=== PATIENT | male | born 1930 | race Caucasian/White ===

== ENCOUNTER 2020-05-19 01:40 | Emergency (ER) | payer MEDICARE, BC ==
[2020-05-19] MEDS ORDERED: HYDROmorphone 0.5 MG/0.5 ML Syringe IVPUSH ONE ×4 (02:01→04:31)
[2020-05-19] MEDS ORDERED: Ondansetron 4 MG/2 ML SDV IVPUSH ONE (02:01)
--- NOTE | 2020-05-19 02:05 | EDM.PDOC ---
ED HPI GENERAL MEDICAL PROBLEM - General Chief Complaint: Chest Pain Stated Complaint: CHEST PAIN Time Seen by Provider: 05/19/20 01:44 Source of Information: Reports: Patient, Family (Daughter) History Limitations: Reports: Other (Patient not good with dates) - History of Present Illness INITIAL COMMENTS - FREE TEXT/NARRATIVE: Mr. Juarez is a pleasant 89-year-old gentleman who now presents the ED stating that he developed chest pain around 18:30 to 19:00 last night. While he calls his pain "chest pain", he is actually indicating the left upper quadrant of his abdomen, and states that it wraps around to his upper left back. When I pointed out that he is indicating his abdomen and not his chest, he clarified that he is not actually experiencing any pain in his chest at all, only left upper abdominal pain and left upper back pain. He states that the pain developed gradually. He is only able to describe the character of the pain as "continuous pain" and confirms that it is constant. He has not identified any modifiers. He states that he felt diaphoretic initially, although less so now. No associated nausea, dyspnea, or sense of impending doom. He states that he had similar pain in 2018, when he was seen in this ED, however, his daughter clarified that at that time his pain was felt in his epigastrium, not his left upper quadrant. Review of that medical record confirms that presentation. The patient states that he took a single sublingual tablet of the medicine prescribed when he was last seen in this ED, around 20:00 to 21:00. The medical record indicates that it would have been Levsin 0.125 mg SL. He states that it did not help his pain at all. The patient then stated that this pain may be similar to pain that he experienced when he was 32 years old, at which time he was diagnosed with pancreatitis. Here in the ED, the patient's initial BP is found to be elevated at 185/81, with bradycardia 55 bpm and tachypnea of 23 rpm. He is afebrile, saturating 100% on room air. Prior to 18:30 last night, the patient denies having a recent fever, chills, sore throat, ear pain, nasal or sinus congestion, cough, dyspnea, chest pain, palpitations, nausea, vomiting, constipation, diarrhea, abdominal pain, urinary symptoms, recent weight gain or weight loss, recent bloody bowel movements or black bowel movements, recent joint aches, headaches, or rashes. Patient's PCP is Dr. Stephen Rosales. He states that he already received an influenza vaccine this season. Epigastric Pain Score (Numeric/FACES): 10 - Related Data Allergies Allergy/AdvReac Type Severity Reaction Status Date / Time lisinopril Allergy Liver Verified 05/19/20 01:48 Problems Sulfa (Sulfonamide Allergy Hives Verified 05/19/20 01:48 Antibiotics) Home Meds: Home Meds Aspirin 81 mg PO DAILY 03/12/18 [History] Doxazosin [Doxazosin Mesylate] 8 mg PO DAILY 03/12/18 [History] Dulaglutide [Trulicity] 1.5 mg SQ TH 03/12/18 [History] Gabapentin [Neurontin] 300 mg PO BID 03/12/18 [History] Glimepiride 4 mg PO BIDMEALS 03/12/18 [History] Hyoscyamine Sulfate [Levsin-Sl] 0.125 mg SL ASDIRECTED #6 tab.subl 03/12/18 [Rx] Naproxen Sodium [Aleve] 220 mg PO BID PRN 03/12/18 [History] Past Medical History Cardiovascular History: Reports: Hypertension Gastrointestinal History: Reports: Pancreatitis (when 32 yrs old) Genitourinary History: Reports: BPH, Diabetic Nephropathy Musculoskeletal History: Reports: Fracture (pelvis, as a child), Osteoarthritis Endocrine/Metabolic History: Reports: Diabetes, Type II - Past Surgical History HEENT Surgical History: Reports: Cataract Surgery (left only), Other (See Below) (Bilateral blepharoplasty) GI Surgical History: Reports: Appendectomy, Hernia, Inguinal (bilateral) Neurological Surgical History: Reports: Lumbar Spine (laminectomy) Social & Family History - Tobacco Use Tobacco Use Status *Q: Never Tobacco User - Caffeine Use Caffeine Use: Reports: None - Alcohol Use Alcohol Use History: Yes Alcohol Use Frequency: Rarely - Recreational Drug Use Recreational Drug Use: No - Living Situation & Occupation Living situation: Reports: , with Spouse, with Family (Daughter) Occupation: Retired ED ROS GENERAL - Review of Systems Review Of Systems: Comprehensive ROS is negative, except as noted in HPI. Musculoskeletal: Reports: Back Pain ED EXAM, GENERAL - Physical Exam Exam: See Below Exam Limited By: No Limitations General Appearance: Alert, WD/WN, Mild Distress (appears uncomfortable) Eye Exam: Bilateral Eye: EOMI, Normal Inspection Ears: Normal External Exam, Hearing Grossly Normal Nose: Normal Inspection Throat/Mouth: Normal Inspection, Normal Lips, Normal Voice, No Airway Compromise Head: Atraumatic, Normocephalic Neck: Normal Inspection, Full Range of Motion Respiratory/Chest: No Respiratory Distress, Lungs Clear, Normal Breath Sounds, No Accessory Muscle Use Cardiovascular: Normal Peripheral Pulses, Regular Rate, Rhythm, No Gallop, No JVD, No Murmur, No Rub Peripheral Pulses: 3+: Radial (L), Radial (R) GI/Abdominal: Normal Bowel Sounds, Soft, No Organomegaly, No Distention, No Abnormal Bruit, No Mass, Tender (Left lower quadrant only. Nontender elsewhere, including the left upper quadrant.) Back Exam: Normal Inspection, Full Range of Motion, Other (Reproducible tenderness to palpation of the left parascapular muscles). No: CVA Tenderness (L), CVA Tenderness (R) Extremities: Normal Inspection, Normal Range of Motion, Normal Capillary Refill, Other (Trace to 1+ pitting pretibial edema bilaterally) Neurological: Alert, Oriented, Normal Cognition, No Motor/Sensory Deficits Psychiatric: Normal Affect Skin Exam: Warm, Dry, Intact, Normal Color, No Rash #1 Interpretation EKG Date: 05/19/20 Time: 01:54 Rhythm: NSR Rate (Beats/Min): 68 Atkins: LAD-Left Atkins Deviation P-Wave: Enlarged (LAE) QRS: LBBB (Incomplete. Late transition.) ST-T: Normal QT: Normal Comparison: No Change (03/12/2018) Course - Vital Signs Last Recorded V/S: Last Vital Signs Temp 36.6 C 05/19/20 01:44 Pulse 65 05/19/20 01:44 Resp 16 05/19/20 01:44 BP 214/92 H 05/19/20 01:44 Pulse Ox 100 05/19/20 01:44 - Orders/Labs/Meds Orders: Active Orders 24 hr Category Date Time Status EKG Documentation Completion [RC] STAT Care 05/19/20 01:47 Active Abdomen Pelvis w Cont [CT] Stat Exams 05/19/20 02:01 Taken Ang Chest [CT] Stat Exams 05/19/20 02:35 Taken Chest 1V Frontal [CR] Stat Exams 05/19/20 01:47 Taken HYDROmorphone [Dilaudid] Med 05/19/20 04:31 Once 0.5 mg IVPUSH ONETIME ONE Sodium Chloride 0.9% [Normal Saline] 1,000 ml Med 05/19/20 02:15 Active IV ASDIRECTED Medication Orders Sodium Chloride (Normal Saline) 1,000 mls @ 150 mls/hr IV ASDIRECTED TRE Last Admin: 05/19/20 02:12 Dose: 150 mls/hr Documented by: DARLENE Labs: Laboratory Tests 05/19/20 05/19/20 05/19/20 Range/Units 01:54 01:54 01:54 WBC 6.99 (4.23-9.07) K/mm3 RBC 4.79 (4.63-6.08) M/mm3 Hgb 14.7 (13.7-17.5) gm/dl Hct 45.5 (40.1-51.0) % MCV 95.0 H (79.0-92.2) fl MCH 30.7 (25.7-32.2) pg MCHC 32.3 (32.2-35.5) g/dl RDW Std Deviation 44.5 H (35.1-43.9) fL Plt Count 124 L (163-337) K/mm3 MPV 10.5 (9.4-12.3) fl Neutrophils % (Manual) 64 H (40-60) % Band Neutrophils % 6 (0-10) % Lymphocytes % (Manual) 23 (20-40) % Atypical Lymphs % 0 % Monocytes % (Manual) 5 (2-10) % Eosinophils % (Manual) 2 (0.8-7.0) % Basophils % (Manual) 0 L (0.2-1.2) Platelet Estimate Decreased Plt Morphology Comment Normal RBC Morph Comment Normal PT 11.1 (9.7-12.0) SECONDS INR 1.04 APTT 25.4 (21.7-31.4) SECONDS D-Dimer, Quantitative 1.16 H (0.19-0.50) mg/L Sodium 141 (136-145) mEq/L Potassium 4.1 (3.5-5.1) mEq/L Chloride 104 (98-107) mEq/L Carbon Dioxide 23 (21-32) mEq/L Anion Gap 18.1 H (5-15) BUN 30 H (7-18) mg/dL Creatinine 2.2 H (0.7-1.3) mg/dL Est Cr Clr Drug Dosing 24.24 mL/min Estimated GFR (MDRD) 28 (>60) mL/min BUN/Creatinine Ratio 13.6 L (14-18) Glucose 285 H (83-115) mg/dL Calcium 9.8 (8.5-10.1) mg/dL Magnesium (1.8-2.4) mg/dl Total Bilirubin 0.3 (0.2-1.0) mg/dL AST 21 (15-37) U/L ALT 38 (16-63) U/L Alkaline Phosphatase 121 H (46-116) U/L Troponin I < 0.017 (0.00-0.056) ng/mL NT-Pro-B Natriuret Pep (0-450) pg/mL Total Protein 6.9 (6.4-8.2) g/dl Albumin 3.8 (3.4-5.0) g/dl Globulin 3.1 gm/dL Albumin/Globulin Ratio 1.2 (1-2) Lipase (73-393) U/L Urine Color (Yellow) Urine Appearance (Clear) Urine pH (5.0-8.0) Ur Specific [place] (1.005-1.030) Urine Protein (Negative) Urine Glucose (UA) (Negative) Urine Ketones (Negative) Urine Occult Blood (Negative) Urine Nitrite (Negative) Urine Bilirubin (Negative) Urine Urobilinogen (0.2-1.0) Ur Leukocyte Esterase (Negative) Urine RBC (0-5) /hpf Urine WBC (0-5) /hpf Ur Squamous Epith Cells (0-5) /hpf Urine Bacteria (FEW) /hpf Urine Mucus (FEW) /hpf 05/19/20 05/19/20 05/19/20 Range/Units 01:54 01:54 01:54 WBC (4.23-9.07) K/mm3 RBC (4.63-6.08) M/mm3 Hgb (13.7-17.5) gm/dl Hct (40.1-51.0) % MCV (79.0-92.2) fl MCH (25.7-32.2) pg MCHC (32.2-35.5) g/dl RDW Std Deviation (35.1-43.9) fL Plt Count (163-337) K/mm3 MPV (9.4-12.3) fl Neutrophils % (Manual) (40-60) % Band Neutrophils % (0-10) % Lymphocytes % (Manual) (20-40) % Atypical Lymphs % % Monocytes % (Manual) (2-10) % Eosinophils % (Manual) (0.8-7.0) % Basophils % (Manual) (0.2-1.2) Platelet Estimate Plt Morphology Comment RBC Morph Comment PT (9.7-12.0) SECONDS INR APTT (21.7-31.4) SECONDS D-Dimer, Quantitative (0.19-0.50) mg/L Sodium (136-145) mEq/L Potassium (3.5-5.1) mEq/L Chloride (98-107) mEq/L Carbon Dioxide (21-32) mEq/L Anion Gap (5-15) BUN (7-18) mg/dL Creatinine (0.7-1.3) mg/dL Est Cr Clr Drug Dosing mL/min Estimated GFR (MDRD) (>60) mL/min BUN/Creatinine Ratio (14-18) Glucose (83-115) mg/dL Calcium (8.5-10.1) mg/dL Magnesium 1.7 L (1.8-2.4) mg/dl Total Bilirubin (0.2-1.0) mg/dL AST (15-37) U/L ALT (16-63) U/L Alkaline Phosphatase (46-116) U/L Troponin I (0.00-0.056) ng/mL NT-Pro-B Natriuret Pep 172 (0-450) pg/mL Total Protein (6.4-8.2) g/dl Albumin (3.4-5.0) g/dl Globulin gm/dL Albumin/Globulin Ratio (1-2) Lipase 214 (73-393) U/L Urine Color (Yellow) Urine Appearance (Clear) Urine pH (5.0-8.0) Ur Specific [place] (1.005-1.030) Urine Protein (Negative) Urine Glucose (UA) (Negative) Urine Ketones (Negative) Urine Occult Blood (Negative) Urine Nitrite (Negative) Urine Bilirubin (Negative) Urine Urobilinogen (0.2-1.0) Ur Leukocyte Esterase (Negative) Urine RBC (0-5) /hpf Urine WBC (0-5) /hpf Ur Squamous Epith Cells (0-5) /hpf Urine Bacteria (FEW) /hpf Urine Mucus (FEW) /hpf 05/19/20 Range/Units 02:49 WBC (4.23-9.07) K/mm3 RBC (4.63-6.08) M/mm3 Hgb (13.7-17.5) gm/dl Hct (40.1-51.0) % MCV (79.0-92.2) fl MCH (25.7-32.2) pg MCHC (32.2-35.5) g/dl RDW Std Deviation (35.1-43.9) fL Plt Count (163-337) K/mm3 MPV (9.4-12.3) fl Neutrophils % (Manual) (40-60) % Band Neutrophils % (0-10) % Lymphocytes % (Manual) (20-40) % Atypical Lymphs % % Monocytes % (Manual) (2-10) % Eosinophils % (Manual) (0.8-7.0) % Basophils % (Manual) (0.2-1.2) Platelet Estimate Plt Morphology Comment RBC Morph Comment PT (9.7-12.0) SECONDS INR APTT (21.7-31.4) SECONDS D-Dimer, Quantitative (0.19-0.50) mg/L Sodium (136-145) mEq/L Potassium (3.5-5.1) mEq/L Chloride (98-107) mEq/L Carbon Dioxide (21-32) mEq/L Anion Gap (5-15) BUN (7-18) mg/dL Creatinine (0.7-1.3) mg/dL Est Cr Clr Drug Dosing mL/min Estimated GFR (MDRD) (>60) mL/min BUN/Creatinine Ratio (14-18) Glucose (83-115) mg/dL Calcium (8.5-10.1) mg/dL Magnesium (1.8-2.4) mg/dl Total Bilirubin (0.2-1.0) mg/dL AST (15-37) U/L ALT (16-63) U/L Alkaline Phosphatase (46-116) U/L Troponin I (0.00-0.056) ng/mL NT-Pro-B Natriuret Pep (0-450) pg/mL Total Protein (6.4-8.2) g/dl Albumin (3.4-5.0) g/dl Globulin gm/dL Albumin/Globulin Ratio (1-2) Lipase (73-393) U/L Urine Color Yellow (Yellow) Urine Appearance Clear (Clear) Urine pH 7.0 (5.0-8.0) Ur Specific [place] 1.025 (1.005-1.030) Urine Protein 2+ H (Negative) Urine Glucose (UA) 2+ H (Negative) Urine Ketones 1+ H (Negative) Urine Occult Blood Trace-intact H (Negative) Urine Nitrite Negative (Negative) Urine Bilirubin Negative (Negative) Urine Urobilinogen 0.2 (0.2-1.0) Ur Leukocyte Esterase Negative (Negative) Urine RBC 0-5 (0-5) /hpf Urine WBC Not seen (0-5) /hpf Ur Squamous Epith Cells 0-5 (0-5) /hpf Urine Bacteria Few (FEW) /hpf Urine Mucus Few (FEW) /hpf Meds: Medications Generic Name Dose Route Start Last Admin Trade Name Freq PRN Reason Stop Dose Admin Sodium Chloride 1,000 mls @ 150 mls/hr 05/19/20 02:15 05/19/20 02:12 Normal Saline IV 150 mls/hr ASDIRECTED TRE Administration Discontinued Medications Generic Name Dose Route Start Last Admin Trade Name Freq PRN Reason Stop Dose Admin Hydromorphone HCl 0.5 mg 05/19/20 02:01 05/19/20 02:11 Dilaudid IVPUSH 05/19/20 02:02 0.5 mg ONETIME ONE Administration Hydromorphone HCl 0.5 mg 05/19/20 02:32 05/19/20 02:51 Dilaudid IVPUSH 05/19/20 02:33 0.5 mg ONETIME ONE Administration Hydromorphone HCl 0.5 mg 05/19/20 03:45 05/19/20 03:58 Dilaudid IVPUSH 05/19/20 03:46 0.5 mg ONETIME ONE Administration Insulin Human Regular 4 unit 05/19/20 02:37 05/19/20 02:52 Humulin R IV 05/19/20 02:38 4 unit ONETIME STA Administration Ondansetron HCl 4 mg 05/19/20 02:01 05/19/20 02:12 Zofran IVPUSH 05/19/20 02:02 4 mg ONETIME ONE Administration - Re-Assessments/Exams Free Text/Narrative Re-Assessment/Exam: 05/19/20 02:04 As above, the patient presented with what he was calling chest pain, but when asked to show us where his pain was located, he indicated his left upper quadrant, and when it was explained that he was indicating his abdomen and on his chest, he denied having any pain felt in his chest. On examination, he has tenderness not in his left upper quadrant, but his left lower quadrant. The pain that he feels in his left scapular area is reproducible with palpation of his parascapular musculature. The remainder of his physical exam is grossly unremarkable. An ECG obtained at triage demonstrates an incomplete left bundle branch block, but no obvious ischemic changes, it is remarkably similar to a johan or ECG dated 03/12/2018. The cause for the patient's presentation is not immediately clear. I have ordered a work-up that includes several blood tests, a portable chest x-ray, and a CT of the abdomen and pelvis with oral and IV contrast. I also asked the patient to provide a urine sample, however, he stated that he urinated just prior to coming to the ED, therefore he is not sure that he will be able to provide his 1. The patient will be treated with judicious IV Dilaudid, IV Zofran, and IV fluid. 05/19/20 02:32 Notified by Lilly MCDONNELL that the 0.5 mg Dilaudid that he was given earlier did not help with his pain, and that he told her that drinking the oral contrast is making his abdominal pain worse. I have ordered additional IV Dilaudid. The patient's CBC is remarkable for modest thrombocytopenia of 124,000, and is otherwise unremarkable. His CMP is remarkable for an anion gap slightly elevated at 18.1, but with a bicarbonate normal at 23. His BUN/Cr are elevated at 30/2.2, and he has a hyperglycemia of 285, with the remainder of his CMP being unremarkable. His magnesium level is slightly depressed at 1.7. His lipase level is within normal limits at 214. His troponin is undetectably low. His pro-BNP is within normal limits at 172. His D-dimer is elevated at 1.16. The patient has not yet provided a urine sample. Review of prior labs finds that the patient's platelets were 141,000 on 03/12/2018, and his BUN/Cr were 25/1.4 at that time. Based on the above, I have ordered a CT angiogram of the chest to evaluate for a PE. I spoke with the geodetic technician and instructed that the patient be given only one dose of IV contrast for the angiogram of the chest, with an abdominal follow-through. I have also ordered 4 units of regular insulin to be given IV. 05/19/20 03:10 The patient's urinalysis is grossly unremarkable. 05/19/20 04:19 Portable chest radiograph reviewed. Poor inspiratory effort. The cardiac silhouette is within normal limits. No pulmonary vascular congestion. No pleural effusions seen on this AP view. No focal infiltrate. No pneumothorax. Mild thoracolumbar scoliosis. Formal read per the Radiologist pending. CT angiogram of the chest is read by [facility] as: 1. No acute pulmonary embolic disease. 2. Gallstones in the gallbladder lumen without evidence of acute cholecystitis. 3. Mild bilateral dependent atelectasis. CT of the abdomen and pelvis with oral and IV contrast is read by [facility] as "No acute abnormality." 05/19/20 04:31 Test results discussed with the patient and his daughter. As above, today's work-up is grossly unremarkable, and does not explain the cause of his pain. I offered to place the patient into observation for continued pain management, but he would prefer to go home, although he did request another shot of Dilaudid before he leaves. Departure - Departure Time of Disposition: 04:32 Disposition: Home, Self-Care 01 Condition: Good Clinical Impression: Left-sided abdominal pain of unknown etiology, Diabetic nephropathy, Hyperglycemia due to type 2 diabetes mellitus - Discharge Information *PRESCRIPTION DRUG MONITORING PROGRAM REVIEWED*: Not Applicable *COPY OF PRESCRIPTION DRUG MONITORING REPORT IN PATIENT ANTHONY: Not Applicable Referrals: Stephen Rosales MD [Primary Care Provider] - Forms: ED Department Discharge Additional Instructions: You were seen in the emergency room after developing left upper abdominal pain wrapping around to your upper left back. Work-up in the ER included numerous blood tests, a urinalysis, a chest x-ray, a CT angiogram of your chest, a CT of your abdomen and pelvis, and an ECG. Your work-up redemonstrated that you have chronic renal insufficiency, and your blood sugar was found to be moderately elevated at 285. The remainder of your work-up was unremarkable, and does not explain the cause of your pain. Placement into observation was offered, but declined. If any other problems, please do not hesitate to return to the ER. Sepsis Event Note (ED) - Evaluation Sepsis Screening Result: No Definite Risk - Focused Exam Vital Signs: Vital Signs Temp Pulse Resp BP Pulse Ox 05/19/20 01:44 36.6 C 65 16 214/92 H 100 - My Orders Last 24 Hours: My Active Orders 05/19/20 01:47 EKG Documentation Completion [RC] STAT Chest 1V Frontal [CR] Stat 05/19/20 02:01 Abdomen Pelvis w Cont [CT] Stat 05/19/20 02:15 Sodium Chloride 0.9% [Normal Saline] 1,000 ml IV ASDIRECTED 05/19/20 02:35 Ang Chest [CT] Stat 05/19/20 04:31 HYDROmorphone [Dilaudid] 0.5 mg IVPUSH ONETIME ONE - Assessment/Plan Last 24 Hours: My Active Orders 05/19/20 01:47 EKG Documentation Completion [RC] STAT Chest 1V Frontal [CR] Stat 05/19/20 02:01 Abdomen Pelvis w Cont [CT] Stat 05/19/20 02:15 Sodium Chloride 0.9% [Normal Saline] 1,000 ml IV ASDIRECTED 05/19/20 02:35 Ang Chest [CT] Stat 05/19/20 04:31 HYDROmorphone [Dilaudid] 0.5 mg IVPUSH ONETIME ONE
[2020-05-19] MEDS ORDERED: Sodium Chloride 0.9% 1,000 ML IV SCH (02:15)
[2020-05-19] MEDS ORDERED: Insulin Regular, Human 100 Units/ML 3 ML Vial IV STA (02:37)
--- NOTE | 2020-05-19 08:32 | CR ---
Chest: Portable view of the chest was obtained. Comparison: Prior chest x-rays of 03/12/[address] of 01/18/15. Heart size is normal. Tortuous thoracic aorta is seen. Very minimal atelectasis above the left hemidiaphragm is seen. Lungs otherwise are clear. No acute parenchymal change is seen. Bony structures show no acute abnormality. Impression: 1. Slight left basilar atelectasis. 2. Nothing acute is appreciated. Diagnostic code #2
--- NOTE | 2020-05-19 08:43 | CT ---
CT abdomen and pelvis Technique: Multiple axial sections were obtained from above the dome of the diaphragm inferiorly through the pubic symphysis. Intravenous and oral contrast was utilized. Delayed images were also obtained through the abdomen and pelvis. Reconstructed coronal and sagittal images were obtained. Comparison: Prior abdominal x-ray of 03/12/18. Findings: Liver contains no focal parenchymal abnormality. Single gallstone is appreciated within the gallbladder measuring approximately 2.2 cm. Spleen appears within normal limits. Very small hiatal hernia is noted. Small nodule is noted within the right adrenal gland which is believed to represent a very minimal benign nodule. Pancreas shows no discrete abnormality. Kidneys show symmetric contrast enhancement. Scattered parapelvic cysts are noted. Delayed images show contrast excretion into both ureters and into the bladder. Aorta shows diffuse atherosclerotic change. Mild aneurysmal dilatation is seen within the mid abdominal aorta with an AP dimension 2.8 cm. Atherosclerotic change continues into the iliac vessels. No retroperitoneal adenopathy is seen. Small fat-containing umbilical hernia is noted. Surgical material from a repaired right-sided inguinal hernia is seen. Diverticuli are seen within the descending and sigmoid colon without inflammatory change of diverticulitis. Prostate gland is enlarged which is within normal limits for the patient's age. Bone window settings were reviewed which show scattered degenerative changes within the spine. No acute osseous abnormality is appreciated. Impression: 1. Multiple findings as noted above believed to be nonacute. 2. Nothing acute is seen. Diagnostic code #2 I agree with preliminary report from [facility], finalized on 05/19/20, 5:08 AM BEHAVIORAL HEALTH CARE MANAGER
--- NOTE | 2020-05-19 08:45 | CT ---
CT chest Technique: Multiple axial sections through the chest were obtained. Intravenous contrast was utilized. Study has been performed as a pulmonary angiogram protocol. Findings: Pulmonary arteries are fairly well opacified. There are no discrete filling defects are seen to indicate pulmonary embolism. Thoracic aorta shows atherosclerotic calcification with no aneurysm. Small amount of contrast is noted within the esophagus. Small lymph nodes are scattered within the mediastinum which are felt to be within normal limits. Mild irregularity is seen within the coronary arteries. No pericardial thickening is appreciated. Slight dependent atelectasis is seen posteriorly. Lungs otherwise are clear with no acute parenchymal change being appreciated. No pleural effusions are seen. Bone window settings were reviewed. Scattered degenerative change is seen within the spine. No acute osseous finding is appreciated. Impression: 1. No findings of pulmonary embolism. 2. Mild dependent atelectasis. Mild contrast within the esophagus. 3. Nothing acute is definitely appreciated. Diagnostic code #2 I agree with preliminary report from [facility], finalized on 05/19/20, 5:11 AM OPTION TRADER
== END 2020-05-19 06:27 | disposition home or self-care (01) ==
LOC: JD.ED 01:40
DX: E11.65 Type 2 diabetes mellitus with hyperglycemia (principal); E11.21 Type 2 diabetes mellitus with diabetic nephropathy; I10 Essential (primary) hypertension; M19.90 Unspecified osteoarthritis, unspecified site; Z88.8 Allergy status to other drugs, medicaments and biological substances; Z88.2 Allergy status to sulfonamides; Z79.84 Long term (current) use of oral hypoglycemic drugs; Z79.82 Long term (current) use of aspirin; Z79.899 Other long term (current) drug therapy
CPT/HCPCS: 36415; 71045; 71275; 74177; 80053; 81001; 83690; 83735; 83880; 84484; 85007; 85027; 85379; 85610; 85730; 93005; 96374; 96375; 96376; 99285; J1170; J1815; J2405; J7030; 93010; 99284

== ENCOUNTER 2020-05-20 13:20 | Inpatient (IN) | payer MEDICARE, BC ==
[2020-05-20] MEDS ORDERED: Sodium Chloride 0.9% 10 ML Syringe FLUSH PRN (14:01)
[2020-05-20] MEDS ORDERED: Sodium Chloride 0.9% 1,000 ML IV STA ×2 (14:02→14:46)
[2020-05-20] MEDS ORDERED: Acetaminophen 325 MG Tab PO ONE (14:15)
[2020-05-20] MEDS ORDERED: cefTRIAXone 2 GM in Sodium Chloride 0.9% 100 ML IV ONE (14:41)
[2020-05-20] MEDS ORDERED: Sodium Chloride 0.9% 500 ML IV STA (14:42)
--- NOTE | 2020-05-20 14:46 | CR ---
Chest: Portable view of the chest was obtained. Comparison: Prior chest x-ray of 05/19/20. Heart size is normal. Tortuous thoracic aorta is seen. Lungs show no acute parenchymal change. Bony structures are grossly intact. Impression: 1. Nothing acute is seen on portable chest x-ray. Diagnostic code #1
--- NOTE | 2020-05-20 15:06 | EDM.PDOC ---
ED HPI GENERAL MEDICAL PROBLEM - General Chief Complaint: Diabetic Complaint Stated Complaint: [facility] Time Seen by Provider: 05/20/20 13:27 Source of Information: Reports: Patient, Family, RN Notes Reviewed History Limitations: Reports: No Limitations - History of Present Illness INITIAL COMMENTS - FREE TEXT/NARRATIVE: Patient is an 89-year-old male presenting to the emergency department via [facility] with complaints of elevated blood sugar as well as right upper quadrant abdominal pain. Patient states that over the last few days, his blood pressure has been steadily increasing. His blood sugar at home was found to be 409. Bedside glucose on triage showed greater than 400. Patient is a history of type 2 diabetes and is on Trulicity and Metformin. He has never been dependent on insulin. He was seen in this emergency department early yesterday morning with complaints of left upper quadrant abdominal pain. Work-up including blood work, urinalysis, CT of the abdomen and pelvis, and CT angiogram of the chest were completed at that time and found to be grossly unremarkable. Patient states that that left upper quadrant abdominal pain resolved yesterday, however today he developed the right upper quadrant abdominal pain. He has had no nausea, vomiting, diarrhea, cough, or shortness of breath. His daughter felt that he may have been febrile at home, however they did not have a thermometer. Vital signs completed on triage showed the patient to be tachycardic at 107, tachypneic at 35, oxygen was 90% on 2 L by nasal cannula. Temperature was initially 97.7 temporal, however patient was diaphoretic and felt much warmer than this. Rectal temp was done and found to be 102.4. Blood pressure stable 133/73. Treatments TUB RIDER: Reports: IV/IO Left Lower Abdominal Pain Score (Numeric/FACES): 2 Right Neck Pain Score (Numeric/FACES): 5 Abdomen Pain Score (Numeric/FACES): 2 - Related Data Allergies Allergy/AdvReac Type Severity Reaction Status Date / Time lisinopril Allergy Liver Verified 05/20/20 13:38 Problems Sulfa (Sulfonamide Allergy Hives Verified 05/20/20 13:38 Antibiotics) Home Meds: Home Meds Aspirin 81 mg PO DAILY 03/12/18 [History] Doxazosin [Doxazosin Mesylate] 8 mg PO DAILY 03/12/18 [History] Dulaglutide [Trulicity] 1.5 mg SQ TH 03/12/18 [History] Gabapentin [Neurontin] 300 mg PO BID 03/12/18 [History] Hyoscyamine Sulfate [Levsin-Sl] 0.125 mg SL ASDIRECTED #6 tab.subl 03/12/18 [Rx] metFORMIN [Glucophage] 500 mg PO BIDMEALS 05/20/20 [History] Past Medical History Cardiovascular History: Reports: Hypertension Respiratory History: Reports: COPD Gastrointestinal History: Reports: Pancreatitis Genitourinary History: Reports: BPH, Diabetic Nephropathy Musculoskeletal History: Reports: Fracture, Osteoarthritis Endocrine/Metabolic History: Reports: Diabetes, Type II - Past Surgical History HEENT Surgical History: Reports: Cataract Surgery, Other (See Below) GI Surgical History: Reports: Appendectomy, Hernia, Inguinal Neurological Surgical History: Reports: Lumbar Spine Social & Family History - Family History Family Medical History: Unobtainable - Tobacco Use Tobacco Use Status *Q: Never Tobacco User - Caffeine Use Caffeine Use: Reports: Coffee - Recreational Drug Use Recreational Drug Use: No - Living Situation & Occupation Living situation: Reports: , with Spouse, with Family (Daughter) Occupation: Retired ED ROS GENERAL - Review of Systems Review Of Systems: See Below Constitutional: Reports: Fever, Weakness, Decreased Appetite HEENT: Reports: No Symptoms Respiratory: Reports: Shortness of Breath. Denies: Cough Cardiovascular: Reports: No Symptoms Endocrine: Reports: No Symptoms GI/Abdominal: Reports: Abdominal Pain, Nausea, Vomiting. Denies: Diarrhea : Reports: No Symptoms Musculoskeletal: Reports: No Symptoms Skin: Reports: No Symptoms Neurological: Reports: No Symptoms Psychiatric: Reports: No Symptoms Hematologic/Lymphatic: Reports: No Symptoms Immunologic: Reports: No Symptoms ED EXAM GENERAL NO PERIP PULSE - Physical Exam Exam: See Below Exam Limited By: No Limitations General Appearance: Alert, WD/WN, No Apparent Distress Respiratory/Chest: No Respiratory Distress, Lungs Clear, Normal Breath Sounds, No Accessory Muscle Use, Chest Non-Tender, Other (Tachypneic) Cardiovascular: Normal Peripheral Pulses, Regular Rate, Rhythm, No Edema, No Gallop, No JVD, No Murmur, No Rub GI/Abdominal: Normal Bowel Sounds, Soft, No Organomegaly, No Distention, No Abnormal Bruit, No Mass, Tender (Right upper quadrant). No: Guarding, Rigid Extremities: Normal Inspection, Normal Range of Motion, Non-Tender, Normal Capillary Refill, No Pedal Edema Neurological: Alert, Oriented, CN II-XII Intact, Normal Cognition, Normal Gait, Normal Reflexes, No Motor/Sensory Deficits Psychiatric: Normal Affect, Normal Mood Skin Exam: Intact, Normal Color, No Rash, Diaphoretic, Increased Warmth Course - Vital Signs Last Recorded V/S: Last Vital Signs Temp 98.9 F 05/22/20 09:27 Pulse 74 05/22/20 04:43 Resp 15 05/22/20 07:56 BP 164/64 H 05/22/20 09:39 Pulse Ox 94 L 05/22/20 07:56 - Orders/Labs/Meds Orders: Medication Orders Acetaminophen (Tylenol) 650 mg PO Q8H [facility] Last Admin: 05/22/20 09:27 Dose: 650 mg Documented by: Admin: 05/22/20 01:15 Dose: 650 mg Documented by: Admin: 05/21/20 18:24 Dose: 650 mg Documented by: KRISTINA Diphenhydramine HCl (Benadryl) 25 mg PO BEDTIME PRN PRN Reason: Anxiety Last Admin: 05/21/20 20:22 Dose: 25 mg Documented by: LAURIE Docusate Sodium (Colace) 100 mg PO DAILY [facility] Last Admin: 05/22/20 09:45 Dose: 100 mg Documented by: CHACORTA Doxazosin Mesylate (Cardura) 8 mg PO DAILY [facility] Heparin Sodium (Porcine) (Heparin Sodium) 5,000 units SUBCUT Q8H [facility] Last Admin: 05/22/20 09:05 Dose: 5,000 units Documented by: Admin: 05/22/20 00:19 Dose: 5,000 units Documented by: Admin: 05/21/20 16:27 Dose: 5,000 units Documented by: Admin: 05/21/20 08:24 Dose: 5,000 units Documented by: Admin: 05/21/20 00:16 Dose: 5,000 units Documented by: Admin: 05/20/20 18:17 Dose: 5,000 units Documented by: CHACORTA Hydralazine HCl (Apresoline) 10 mg IVPUSH Q4H PRN PRN Reason: Hypertension Last Admin: 05/22/20 09:00 Dose: 10 mg Documented by: CHACORTA Ceftriaxone Sodium 2 gm/ (Sodium Chloride) 100 mls @ 200 mls/hr IV Q24H [facility] Last Admin: 05/22/20 09:08 Dose: 200 mls/hr Documented by: CHACORTA Insulin Human Lispro (Humalog) 0 unit SUBCUT QIDACANDBED [facility]; Protocol Last Admin: 05/22/20 10:54 Dose: 4 units Documented by: Admin: 05/22/20 06:12 Dose: 4 units Documented by: Admin: 05/21/20 21:07 Dose: 6 units Documented by: Admin: 05/21/20 16:27 Dose: 8 units Documented by: Admin: 05/21/20 11:58 Dose: 6 units Documented by: Admin: 05/21/20 07:33 Dose: 4 units Documented by: CHACORTA Ondansetron HCl (Zofran) 4 mg IVPUSH Q8H PRN PRN Reason: Nausea/Vomiting Last Admin: 05/22/20 10:39 Dose: 4 mg Documented by: CHACORTA Oxycodone HCl (Oxycodone) 5 mg PO Q4H PRN PRN Reason: Pain (moderate 4-6) Last Admin: 05/22/20 00:19 Dose: 5 mg Documented by: Admin: 05/21/20 20:22 Dose: 5 mg Documented by: Admin: 05/21/20 16:28 Dose: 5 mg Documented by: Admin: 05/21/20 13:31 Dose: 5 mg Documented by: CHACORTA Polyethylene Glycol (Miralax) 17 gm PO DAILY [facility] Last Admin: 05/22/20 09:58 Dose: 17 gm Documented by: CHACORTA Sodium Chloride (Saline Flush) 10 ml FLUSH ASDIRECTED PRN PRN Reason: Keep Vein Open Last Admin: 05/20/20 14:32 Dose: 10 ml Documented by: JAVI Labs: Laboratory Tests 05/20/20 05/20/20 05/20/20 Range/Units 13:30 13:30 13:30 WBC 9.44 H (4.23-9.07) K/mm3 RBC 4.50 L (4.63-6.08) M/mm3 Hgb 14.0 (13.7-17.5) gm/dl Hct 42.3 (40.1-51.0) % MCV 94.0 H (79.0-92.2) fl MCH 31.1 (25.7-32.2) pg MCHC 33.1 (32.2-35.5) g/dl RDW Std Deviation 44.6 H (35.1-43.9) fL Plt Count 114 L (163-337) K/mm3 MPV 11.4 (9.4-12.3) fl Neut % (Auto) 93.4 H (34.0-67.9) % Lymph % (Auto) 3.1 L (21.8-53.1) % [place] % (Auto) 3.2 L (5.3-12.2) % Eos % (Auto) 0 L (0.8-7.0) Baso % (Auto) 0.0 L (0.1-1.2) % Neut # (Auto) 8.82 H (1.78-5.38) K/mm3 Lymph # (Auto) 0.29 L (1.32-3.57) K/mm3 [place] # (Auto) 0.30 (0.30-0.82) K/mm3 Eos # (Auto) 0.00 L (0.04-0.54) K/mm3 Baso # (Auto) 0.00 L (0.01-0.08) K/mm3 Manual Slide Review Abnormal smear Sodium 132 L (136-145) mEq/L Potassium 4.4 (3.5-5.1) mEq/L Chloride 96 L (98-107) mEq/L Carbon Dioxide 17 L (21-32) mEq/L Anion Gap 23.4 H (5-15) BUN 30 H (7-18) mg/dL Creatinine 2.2 H (0.7-1.3) mg/dL Est Cr Clr Drug Dosing 23.50 mL/min Estimated GFR (MDRD) 28 (>60) mL/min BUN/Creatinine Ratio 13.6 L (14-18) Glucose 446 H (83-115) mg/dL POC Glucose (83-110) mg/dL Lactic Acid (0.4-2.0) mmol/L Calcium 9.2 (8.5-10.1) mg/dL Magnesium (1.8-2.4) mg/dl Total Bilirubin 1.4 H (0.2-1.0) mg/dL Direct Bilirubin (0.0-0.2) mg/dl GGT (15-85) U/L AST 24 (15-37) U/L ALT 51 (16-63) U/L Alkaline Phosphatase 81 (46-116) U/L Troponin I < 0.017 (0.00-0.056) ng/mL C-Reactive Protein 25.3 H* (<1.0) mg/dL NT-Pro-B Natriuret Pep 2950 H (0-450) pg/mL Total Protein 6.5 (6.4-8.2) g/dl Albumin 3.3 L (3.4-5.0) g/dl Globulin 3.2 gm/dL Albumin/Globulin Ratio 1.0 (1-2) Lipase (73-393) U/L Urine Color (Yellow) Urine Appearance (Clear) Urine pH (5.0-8.0) Ur Specific [place] (1.005-1.030) Urine Protein (Negative) Urine Glucose (UA) (Negative) Urine Ketones (Negative) Urine Occult Blood (Negative) Urine Nitrite (Negative) Urine Bilirubin (Negative) Urine Urobilinogen (0.2-1.0) Ur Leukocyte Esterase (Negative) Urine RBC (0-5) /hpf Urine WBC (0-5) /hpf Ur Squamous Epith Cells (0-5) /hpf Amorphous Sediment (NOT SEEN) /hpf Urine Bacteria (FEW) /hpf Urine Mucus (FEW) /hpf Ketones (0.0-0.3) mM Influenza Type A RNA (NEGATIVE) Influenza Type B RNA (NEGATIVE) SARS-CoV-2 RNA (SPENCER) (NEGATIVE) 05/20/20 05/20/20 05/20/20 Range/Units 13:30 13:30 13:30 WBC (4.23-9.07) K/mm3 RBC (4.63-6.08) M/mm3 Hgb (13.7-17.5) gm/dl Hct (40.1-51.0) % MCV (79.0-92.2) fl MCH (25.7-32.2) pg MCHC (32.2-35.5) g/dl RDW Std Deviation (35.1-43.9) fL Plt Count (163-337) K/mm3 MPV (9.4-12.3) fl Neut % (Auto) (34.0-67.9) % Lymph % (Auto) (21.8-53.1) % [place] % (Auto) (5.3-12.2) % Eos % (Auto) (0.8-7.0) Baso % (Auto) (0.1-1.2) % Neut # (Auto) (1.78-5.38) K/mm3 Lymph # (Auto) (1.32-3.57) K/mm3 [place] # (Auto) (0.30-0.82) K/mm3 Eos # (Auto) (0.04-0.54) K/mm3 Baso # (Auto) (0.01-0.08) K/mm3 Manual Slide Review Sodium (136-145) mEq/L Potassium (3.5-5.1) mEq/L Chloride (98-107) mEq/L Carbon Dioxide (21-32) mEq/L Anion Gap (5-15) BUN (7-18) mg/dL Creatinine (0.7-1.3) mg/dL Est Cr Clr Drug Dosing mL/min Estimated GFR (MDRD) (>60) mL/min BUN/Creatinine Ratio (14-18) Glucose (83-115) mg/dL POC Glucose (83-110) mg/dL Lactic Acid 5.9 H* (0.4-2.0) mmol/L Calcium (8.5-10.1) mg/dL Magnesium 1.4 L (1.8-2.4) mg/dl Total Bilirubin (0.2-1.0) mg/dL Direct Bilirubin (0.0-0.2) mg/dl GGT 138 H (15-85) U/L AST (15-37) U/L ALT (16-63) U/L Alkaline Phosphatase (46-116) U/L Troponin I (0.00-0.056) ng/mL C-Reactive Protein (<1.0) mg/dL NT-Pro-B Natriuret Pep (0-450) pg/mL Total Protein (6.4-8.2) g/dl Albumin (3.4-5.0) g/dl Globulin gm/dL Albumin/Globulin Ratio (1-2) Lipase 178 (73-393) U/L Urine Color (Yellow) Urine Appearance (Clear) Urine pH (5.0-8.0) Ur Specific [place] (1.005-1.030) Urine Protein (Negative) Urine Glucose (UA) (Negative) Urine Ketones (Negative) Urine Occult Blood (Negative) Urine Nitrite (Negative) Urine Bilirubin (Negative) Urine Urobilinogen (0.2-1.0) Ur Leukocyte Esterase (Negative) Urine RBC (0-5) /hpf Urine WBC (0-5) /hpf Ur Squamous Epith Cells (0-5) /hpf Amorphous Sediment (NOT SEEN) /hpf Urine Bacteria (FEW) /hpf Urine Mucus (FEW) /hpf Ketones (0.0-0.3) mM Influenza Type A RNA (NEGATIVE) Influenza Type B RNA (NEGATIVE) SARS-CoV-2 RNA (SPENCER) (NEGATIVE) 05/20/20 05/20/20 05/20/20 Range/Units 13:30 14:30 15:50 WBC (4.23-9.07) K/mm3 RBC (4.63-6.08) M/mm3 Hgb (13.7-17.5) gm/dl Hct (40.1-51.0) % MCV (79.0-92.2) fl MCH (25.7-32.2) pg MCHC (32.2-35.5) g/dl RDW Std Deviation (35.1-43.9) fL Plt Count (163-337) K/mm3 MPV (9.4-12.3) fl Neut % (Auto) (34.0-67.9) % Lymph % (Auto) (21.8-53.1) % [place] % (Auto) (5.3-12.2) % Eos % (Auto) (0.8-7.0) Baso % (Auto) (0.1-1.2) % Neut # (Auto) (1.78-5.38) K/mm3 Lymph # (Auto) (1.32-3.57) K/mm3 [place] # (Auto) (0.30-0.82) K/mm3 Eos # (Auto) (0.04-0.54) K/mm3 Baso # (Auto) (0.01-0.08) K/mm3 Manual Slide Review Sodium (136-145) mEq/L Potassium (3.5-5.1) mEq/L Chloride (98-107) mEq/L Carbon Dioxide (21-32) mEq/L Anion Gap (5-15) BUN (7-18) mg/dL Creatinine (0.7-1.3) mg/dL Est Cr Clr Drug Dosing mL/min Estimated GFR (MDRD) (>60) mL/min BUN/Creatinine Ratio (14-18) Glucose (83-115) mg/dL POC Glucose (83-110) mg/dL Lactic Acid (0.4-2.0) mmol/L Calcium (8.5-10.1) mg/dL Magnesium (1.8-2.4) mg/dl Total Bilirubin (0.2-1.0) mg/dL Direct Bilirubin (0.0-0.2) mg/dl GGT (15-85) U/L AST (15-37) U/L ALT (16-63) U/L Alkaline Phosphatase (46-116) U/L Troponin I (0.00-0.056) ng/mL C-Reactive Protein (<1.0) mg/dL NT-Pro-B Natriuret Pep (0-450) pg/mL Total Protein (6.4-8.2) g/dl Albumin (3.4-5.0) g/dl Globulin gm/dL Albumin/Globulin Ratio (1-2) Lipase (73-393) U/L Urine Color Dark yellow (Yellow) Urine Appearance Clear (Clear) Urine pH 5.5 (5.0-8.0) Ur Specific [place] 1.025 (1.005-1.030) Urine Protein 1+ H (Negative) Urine Glucose (UA) 2+ H (Negative) Urine Ketones 1+ H (Negative) Urine Occult Blood Negative (Negative) Urine Nitrite Negative (Negative) Urine Bilirubin 1+ H (Negative) Urine Urobilinogen 0.2 (0.2-1.0) Ur Leukocyte Esterase Negative (Negative) Urine RBC 5-10 H (0-5) /hpf Urine WBC 0-5 (0-5) /hpf Ur Squamous Epith Cells 0-5 (0-5) /hpf Amorphous Sediment Few H (NOT SEEN) /hpf Urine Bacteria Few (FEW) /hpf Urine Mucus Moderate H (FEW) /hpf Ketones 0.99 (0.0-0.3) mM Influenza Type A RNA Negative (NEGATIVE) Influenza Type B RNA Negative (NEGATIVE) SARS-CoV-2 RNA (SPENCER) Negative (NEGATIVE) 05/20/20 05/20/20 05/20/20 Range/Units 16:23 16:30 16:30 WBC (4.23-9.07) K/mm3 RBC (4.63-6.08) M/mm3 Hgb (13.7-17.5) gm/dl Hct (40.1-51.0) % MCV (79.0-92.2) fl MCH (25.7-32.2) pg MCHC (32.2-35.5) g/dl RDW Std Deviation (35.1-43.9) fL Plt Count (163-337) K/mm3 MPV (9.4-12.3) fl Neut % (Auto) (34.0-67.9) % Lymph % (Auto) (21.8-53.1) % [place] % (Auto) (5.3-12.2) % Eos % (Auto) (0.8-7.0) Baso % (Auto) (0.1-1.2) % Neut # (Auto) (1.78-5.38) K/mm3 Lymph # (Auto) (1.32-3.57) K/mm3 [place] # (Auto) (0.30-0.82) K/mm3 Eos # (Auto) (0.04-0.54) K/mm3 Baso # (Auto) (0.01-0.08) K/mm3 Manual Slide Review Sodium (136-145) mEq/L Potassium (3.5-5.1) mEq/L Chloride (98-107) mEq/L Carbon Dioxide (21-32) mEq/L Anion Gap (5-15) BUN (7-18) mg/dL Creatinine (0.7-1.3) mg/dL Est Cr Clr Drug Dosing mL/min Estimated GFR (MDRD) (>60) mL/min BUN/Creatinine Ratio (14-18) Glucose (83-115) mg/dL POC Glucose 342 H (83-110) mg/dL Lactic Acid 2.8 H* (0.4-2.0) mmol/L Calcium (8.5-10.1) mg/dL Magnesium (1.8-2.4) mg/dl Total Bilirubin (0.2-1.0) mg/dL Direct Bilirubin 0.50 H (0.0-0.2) mg/dl GGT (15-85) U/L AST (15-37) U/L ALT (16-63) U/L Alkaline Phosphatase (46-116) U/L Troponin I (0.00-0.056) ng/mL C-Reactive Protein (<1.0) mg/dL NT-Pro-B Natriuret Pep (0-450) pg/mL Total Protein (6.4-8.2) g/dl Albumin (3.4-5.0) g/dl Globulin gm/dL Albumin/Globulin Ratio (1-2) Lipase (73-393) U/L Urine Color (Yellow) Urine Appearance (Clear) Urine pH (5.0-8.0) Ur Specific [place] (1.005-1.030) Urine Protein (Negative) Urine Glucose (UA) (Negative) Urine Ketones (Negative) Urine Occult Blood (Negative) Urine Nitrite (Negative) Urine Bilirubin (Negative) Urine Urobilinogen (0.2-1.0) Ur Leukocyte Esterase (Negative) Urine RBC (0-5) /hpf Urine WBC (0-5) /hpf Ur Squamous Epith Cells (0-5) /hpf Amorphous Sediment (NOT SEEN) /hpf Urine Bacteria (FEW) /hpf Urine Mucus (FEW) /hpf Ketones (0.0-0.3) mM Influenza Type A RNA (NEGATIVE) Influenza Type B RNA (NEGATIVE) SARS-CoV-2 RNA (SPENCER) (NEGATIVE) Meds: Medications Generic Name Dose Route Start Last Admin Trade Name Freq PRN Reason Stop Dose Admin Acetaminophen 650 mg 05/21/20 18:15 05/22/20 09:27 Tylenol PO 650 mg Q8H TRE Administration Diphenhydramine HCl 25 mg 05/21/20 18:07 05/21/20 20:22 Benadryl PO 25 mg BEDTIME PRN Administration Anxiety Docusate Sodium 100 mg 05/22/20 09:00 05/22/20 09:45 Colace PO 100 mg DAILY TRE Administration Doxazosin Mesylate 8 mg 05/23/20 09:00 Cardura PO DAILY TRE Heparin Sodium (Porcine) 5,000 units 05/20/20 17:15 05/22/20 09:05 Heparin Sodium SUBCUT 5,000 units Q8H TRE Administration Hydralazine HCl 10 mg 05/22/20 08:48 05/22/20 09:00 Apresoline IVPUSH 10 mg Q4H PRN Administration Hypertension Ceftriaxone Sodium 2 gm/ 100 mls @ 200 mls/hr 05/22/20 10:00 05/22/20 09:08 Sodium Chloride IV 200 mls/hr Q24H TRE Administration Insulin Human Lispro 0 unit 05/21/20 08:00 05/22/20 10:54 Humalog SUBCUT 4 units QIDACANDBED TRE Administration Protocol Ondansetron HCl 4 mg 05/22/20 10:13 05/22/20 10:39 Zofran IVPUSH 4 mg Q8H PRN Administration Nausea/Vomiting Oxycodone HCl 5 mg 05/20/20 17:12 05/22/20 00:19 Oxycodone PO 5 mg Q4H PRN Administration Pain (moderate 4-6) Polyethylene Glycol 17 gm 05/22/20 09:00 05/22/20 09:58 Miralax PO 17 gm DAILY TRE Administration Sodium Chloride 10 ml 05/20/20 14:01 05/20/20 14:32 Saline Flush FLUSH 10 ml ASDIRECTED PRN Administration Keep Vein Open Discontinued Medications Generic Name Dose Route Start Last Admin Trade Name Freq PRN Reason Stop Dose Admin Acetaminophen 975 mg 05/20/20 14:15 05/20/20 14:32 Tylenol PO 05/20/20 14:16 975 mg NOW ONE Administration Bisacodyl 10 mg 05/22/20 08:52 05/22/20 09:45 Dulcolax RECTAL 05/22/20 08:53 10 mg ONETIME ONE Administration Dexmedetomidine HCl Confirm 05/21/20 11:09 Precedex Administered 05/21/20 11:10 Dose 200 mcg .ROUTE .STK-MED ONE Doxazosin Mesylate 8 mg 05/21/20 09:00 05/21/20 08:05 Cardura PO Not Given DAILY [facility] Doxazosin Mesylate 8 mg 05/22/20 07:30 05/22/20 07:35 Cardura PO 05/22/20 07:31 8 mg NOW ONE Administration Esmolol HCl Confirm 05/21/20 10:49 Esmolol Administered 05/21/20 10:50 Dose 100 mg .ROUTE .STK-MED ONE Etomidate Confirm 05/21/20 09:08 Amidate Administered 05/21/20 09:09 Dose 40 mg IVPUSH .STK-MED ONE Fentanyl Confirm 05/21/20 09:06 Sublimaze Administered 05/21/20 09:07 Dose 250 mcg .ROUTE .STK-MED ONE Glycopyrrolate Confirm 05/21/20 10:29 Robinul Administered 05/21/20 10:30 Dose 0.8 mg .ROUTE .STK-MED ONE Hydromorphone HCl Confirm 05/21/20 09:18 Dilaudid Administered 05/21/20 09:19 Dose 0.5 mg .ROUTE .STK-MED ONE Hydromorphone HCl Confirm 05/21/20 10:46 Dilaudid Administered 05/21/20 10:47 Dose 0.5 mg .ROUTE .STK-MED ONE Sodium Chloride 1,000 mls @ 150 mls/hr 05/20/20 14:02 05/20/20 14:32 Normal Saline IV 05/20/20 20:41 150 mls/hr NOW STA Administration Ceftriaxone Sodium 2 gm/ 100 mls @ 200 mls/hr 05/20/20 14:41 05/20/20 16:19 Sodium Chloride IV 05/20/20 15:10 200 mls/hr ONETIME ONE Administration Sodium Chloride 500 mls @ 999 mls/hr 05/20/20 14:42 05/20/20 15:57 Normal Saline IV 05/20/20 15:12 Infused NOW STA Infusion Sodium Chloride 1,000 mls @ 999 mls/hr 05/20/20 14:46 05/20/20 14:49 Normal Saline IV 05/20/20 15:42 999 mls/hr NOW STA Administration Magnesium Sulfate 4 gm/ Premix 50 mls @ 12.5 mls/hr 05/20/20 15:18 05/20/20 15:48 IV 05/20/20 19:17 12.5 mls/hr ONETIME ONE Administration Lactated Ringer's 1,000 mls @ 75 mls/hr 05/20/20 17:15 Ringers, Lactated IV ASDIRECTED TRE Ceftriaxone Sodium 2 gm/ 100 mls @ 200 mls/hr 05/21/20 14:00 Sodium Chloride IV Q24H TRE Sodium Chloride 1,000 mls @ 75 mls/hr 05/20/20 17:30 05/20/20 19:26 Normal Saline IV 75 mls/hr ASDIRECTED TRE Administration Dextrose/Sodium Chloride 1,000 mls @ 25 mls/hr 05/20/20 21:45 05/21/20 08:07 Dextrose 5%-Normal Saline IV 25 mls/hr ASDIRECTED TRE Infusion Sodium Chloride 1,000 mls @ 75 mls/hr 05/20/20 21:45 Normal Saline IV ASDIRECTED TRE Magnesium Sulfate 4 gm/ Premix 50 mls @ 12.5 mls/hr 05/21/20 07:32 05/21/20 08:14 IV 05/21/20 11:31 Not Given ONETIME ONE Magnesium Sulfate 4 gm/ Premix 50 mls @ 12.5 mls/hr 05/21/20 09:30 05/21/20 08:29 IV 05/21/20 13:29 Not Given ONETIME ONE Lidocaine HCl Confirm 05/21/20 09:06 Xylocaine-Mpf 1% Administered 05/21/20 09:07 Dose 4 mls @ as directed .ROUTE .STK-MED ONE Ceftriaxone Sodium 2 gm/ 100 mls @ 200 mls/hr 05/21/20 09:31 05/21/20 15:14 Sodium Chloride IV 05/21/20 10:00 Not Given ONETIME STA Ceftriaxone Sodium 2 gm/ 100 mls @ 200 mls/hr 05/21/20 09:39 05/21/20 10:41 Sodium Chloride IV 05/21/20 10:08 Not Given ONETIME STA Sodium Chloride Confirm 05/21/20 11:13 Normal Saline Administered 05/21/20 11:14 Dose 100 mls @ as directed .ROUTE .STK-MED ONE Sodium Chloride 1,000 mls @ 75 mls/hr 05/21/20 11:45 05/22/20 00:19 Normal Saline IV 75 mls/hr ASDIRECTED TRE Administration Metoprolol Tartrate 5 mg/ 55 mls @ 100 mls/hr 05/21/20 18:04 Sodium Chloride IV Q4H PRN Hypertension Insulin Human Lispro 5 unit 05/20/20 15:07 05/20/20 15:41 Humalog SUBCUT 05/20/20 15:08 5 unit ONETIME ONE Administration Insulin Human Lispro 5 unit 05/20/20 16:29 05/20/20 16:59 Humalog SUBCUT 05/20/20 16:30 5 units ONETIME ONE Administration Insulin Human Lispro 3 unit 05/20/20 19:35 05/20/20 19:45 Humalog SUBCUT 05/20/20 19:36 3 units ONETIME ONE Administration Lidocaine/Epinephrine Confirm 05/21/20 08:35 05/21/20 09:30 Xylocaine 1% With Epinephrine 1:100,000 Administered 05/21/20 08:36 40 ml Dose Administration 40 ml .ROUTE .STK-MED ONE Metoprolol Tartrate 5 mg 05/21/20 18:08 05/22/20 04:43 Lopressor IVPUSH 5 mg Q4H PRN Administration HYPERTENSION Metoprolol Tartrate 10 mg 05/22/20 08:41 Lopressor IV Q4H PRN HYPERTENSION SBP > 170 mmHg Morphine Sulfate 1 mg 05/20/20 17:12 05/22/20 01:03 Morphine IVPUSH 1 mg Q4H PRN Administration Pain (severe 7-10) Neostigmine Methylsulfate Confirm 05/21/20 10:29 Neostigmine Methylsulfate Administered 05/21/20 10:30 Dose 5 mg .ROUTE .STK-MED ONE Ondansetron HCl Confirm 05/21/20 10:08 Zofran Administered 05/21/20 10:09 Dose 8 mg .ROUTE .STK-MED ONE Rocuronium [place] Confirm 05/21/20 09:06 Zemuron Administered 05/21/20 09:07 Dose 50 mg .ROUTE .STK-MED ONE - Re-Assessments/Exams Free Text/Narrative Re-Assessment/Exam: Patient is an 89-year-old male presenting to the emergency department with complaints of hyperglycemia as well as right upper quadrant abdominal pain. Vital signs on triage showed that he was tachycardic at 107, tachypneic at 35, and febrile at 102.4 rectal. Oxygen saturation was 89 to 90% on room air. He is satting in the low 90s on 2 L by nasal cannula. Work-up was completed yesterday showed no signs of infection, however based on his presentation today, a septic work-up is indicated. I have ordered appropriate blood tests, urinalysis, EKG, chest x-ray, Covid and influenza test. Pending results of blood work, I have ordered normal saline to start at 150 mls/hr. I have also ordered Tylenol 975 mg p.o. 05/20/20 15:14 Hematology was significant for WBC minimally elevated at 9.44 with a left shift, sodium low at 132, chloride 96, CO2 17, anion gap 23.4, BUN 30, creatinine 2.2, glucose 446, lactic acid 5.9, magnesium 1.4, total bili 1.4 GGT 138, CRP 25.3, proBNP 2950. The urinalysis, Covid, and influenza are pending. I have ordered for 1 L bolus of normal saline and then to resume at 150 ml/hr. Given that patient's proBNP increased from 172 yesterday to 2950 today, the full 30 ml/kg bolus recommended by sepsis protocol would not be appropriate at this time. Patient is not hypotensive. Heart rate has improved to 90. I have also ordered a right upper quadrant abdominal ultrasound, Rocephin 2 g IV to be started after urinalysis is collected, serum ketones, and 5 units of subcutaneous Humalog. 05/20/20 1545 Results of right upper quadrant ulcers ultrasound show suboptimal exam with abn ormal gallbladder as described above findings suspicious for acute cholecystitis as noted above. Gallbladder shows a 1.8 cm stone with slight gallbladder wall thickening and minimal pericholecystic edema. Common bile duct while not well identified measures mildly prominent at 8 mm. Called and spoke with the general surgeon on-call, Dr. Cook. He will come in and examine the patient. 05/20/20 16:03 Called lab regarding the Covid and influenza swabs. Unfortunately they were missed and are just being ran now. Results will take approximately 1 hour. 05/20/20 1635 Glucose was 342. I ordered 5 more units of subcutaneous Humalog. Repeat lactic acid has been drawn. Dr. Cook is added on a direct bili. Depending on the relative results of that, patient may be admitted here or transfer to [place]. 05/20/20 17:08 Repeat lactic acid was 2.8, direct bili 0.5. Patient is negative for influenza and Covid. Dr. Cook will admit the patient here for acute cholecystitis. Departure - Departure Time of Disposition: 17:10 Disposition: Admitted As Inpatient 66 Condition: Good Clinical Impression: Cholecystitis, acute, Hypomagnesemia, Lactic acidosis Hyperglycemia due to type 2 diabetes mellitus Qualifiers: Diabetes mellitus care home insulin use: without director long term care use Qualified Code(s): E11.65 - Type 2 diabetes mellitus with hyperglycemia - Discharge Information Sepsis Event Note (ED) - Evaluation Sepsis Screening Result: Severe Sepsis Risk
[2020-05-20] MEDS ORDERED: Magnesium Sulfate/Water 4 GM in Premix Bag 1 BAG IV ONE (15:18)
--- NOTE | 2020-05-20 15:35 | US ---
Limited abdominal ultrasound: Multiple real-time images of the upper right abdomen were obtained. Technologist's note: Extremely poor ultrasound windows, suboptimal exam Findings: Visualized portions of the liver shows no gross abnormality. Gallbladder shows a 1.8 cm stone. Gallbladder wall is slightly thickened with minimal pericholecystic edema being seen. Common bile duct is not well identified but measures mildly prominent at approximately 8 mm. Right kidney shows no hydronephrosis. Right kidney has a length of 10.5 cm. Proximal aorta shows no aneurysm. Pancreas is obscured. Inferior vena cava is patent. Main portal vein appears hepatopedal. Impression: 1. Suboptimal exam as noted above. 2. Abnormal gallbladder as described above with findings suspicious for acute cholecystitis as noted above. 3. No other discrete abnormality is definitely appreciated. Diagnostic code #5
[2020-05-20 16:39] LABS: CORONAVIRUS COVID-19 NAA NEGATIVE (NEGATIVE)
[2020-05-20] MEDS ORDERED: Morphine 2 MG/ML SYRINGE IVPUSH PRN (17:12)
[2020-05-20] MEDS ORDERED: Lactated Ringers 1,000 ML IV SCH (17:15)
--- NOTE | 2020-05-20 17:29 | PCM.HP.2 ---
H&P History of Present Illness - General Date of Service: 05/20/20 Admit Problem/Dx: Admission Diagnosis/Problem Admission Diagnosis/Problem Cholecystitis Source of Information: Patient History Limitations: Reports: No Limitations - History of Present Illness Initial Comments - Free Text/Narative: Mr. Juarez is an 89 yo man presenting with abdominal pain. He was in the ER the day prior with RUQ pain, and now has LUQ pain. Today, his lab work is abnormal, showing a rising WBC to 9.4, but with significant left shift. His bilirubin is slightly elevated at 1.4, direct is 0.5, An ultrasound shows a large gallstone at the gallbladder neck and findings suggesting cholecystitis. The patient has fever of 102 F per rectum. He is a diabetic, not insulin-dependent, and this is normally well controlled but today is in the 400 range. His creatinine has nearly doubled since his visit to the ER the day prior. Lactate is > 5. He is relatively healthy for his age and lives independently. He denies cardiopulmonary disease, altrhough lab work shows elevated BNP indicating some component of CHF. Sepsis protocol has been initiated, the patient has been hemodynamically stable with normal vitals aside from fever since his arrival. - Related Data Allergies/Adverse Reactions: Allergies Allergy/AdvReac Type Severity Reaction Status Date / Time lisinopril Allergy Liver Verified 05/20/20 13:38 Problems Sulfa (Sulfonamide Allergy Hives Verified 05/20/20 13:38 Antibiotics) Home Medications: Home Meds Aspirin 81 mg PO DAILY 03/12/18 [History] Doxazosin [Doxazosin Mesylate] 8 mg PO DAILY 03/12/18 [History] Dulaglutide [Trulicity] 1.5 mg SQ TH 03/12/18 [History] Gabapentin [Neurontin] 300 mg PO BID 03/12/18 [History] Hyoscyamine Sulfate [Levsin-Sl] 0.125 mg SL ASDIRECTED #6 tab.subl 03/12/18 [Rx] metFORMIN [Glucophage] 500 mg PO BIDMEALS 05/20/20 [History] Past Medical History Cardiovascular History: Reports: Hypertension Respiratory History: Reports: COPD Gastrointestinal History: Reports: Pancreatitis Genitourinary History: Reports: BPH, Diabetic Nephropathy Musculoskeletal History: Reports: Fracture, Osteoarthritis Endocrine/Metabolic History: Reports: Diabetes, Type II - Past Surgical History HEENT Surgical History: Reports: Cataract Surgery, Other (See Below) GI Surgical History: Reports: Appendectomy, Hernia, Inguinal Neurological Surgical History: Reports: Lumbar Spine Social & Family History - Family History Family Medical History: Unobtainable - Tobacco Use Tobacco Use Status *Q: Never Tobacco User - Caffeine Use Caffeine Use: Reports: Coffee - Recreational Drug Use Recreational Drug Use: No - Living Situation & Occupation Living situation: Reports: , with Spouse, with Family (Daughter) Occupation: Retired H&P Review of Systems - Review of Systems: Review Of Systems: See Below General: Reports: Fever HEENT: Reports: No Symptoms Pulmonary: Reports: No Symptoms Cardiovascular: Reports: No Symptoms Gastrointestinal: Reports: Abdominal Pain, Nausea Genitourinary: Reports: No Symptoms Musculoskeletal: Reports: No Symptoms Skin: Reports: No Symptoms Psychiatric: Reports: No Symptoms Neurological: Reports: No Symptoms Hematologic/Lymphatic: Reports: No Symptoms Immunologic: Reports: No Symptoms Exam - Exam Exam: See Below - Vital Signs Vital Signs: Last Vital Signs Temp 39.1 C H 05/20/20 14:18 Pulse 107 H 05/20/20 13:29 Resp 35 H 05/20/20 13:29 BP 133/73 05/20/20 13:29 Pulse Ox 90 L 05/20/20 13:29 Weight: 90.718 kg - Exam Quality Assessment: Supplemental Oxygen General: Alert, Oriented, Cooperative HEENT: Conjunctiva Clear Neck: Trachea Midline Lungs: Clear to Auscultation, Normal Respiratory Effort Cardiovascular: Regular Rate, Regular Rhythm GI/Abdominal Exam: Soft, Non-Tender, Other (not really tender, no palpable abdom inal mass) Extremities: Normal Inspection Skin: Warm, Dry Neuro Extensive - Mental Status: Alert, Oriented x3 Psychiatric: Normal Mood - Patient Data Lab Results Last 24 hrs: Laboratory Results - last 24 hr 05/20/20 05/20/20 05/20/20 Range/Units 13:30 13:30 13:30 WBC 9.44 H (4.23-9.07) K/mm3 RBC 4.50 L (4.63-6.08) M/mm3 Hgb 14.0 (13.7-17.5) gm/dl Hct 42.3 (40.1-51.0) % MCV 94.0 H (79.0-92.2) fl MCH 31.1 (25.7-32.2) pg MCHC 33.1 (32.2-35.5) g/dl RDW Std Deviation 44.6 H (35.1-43.9) fL Plt Count 114 L (163-337) K/mm3 MPV 11.4 (9.4-12.3) fl Neut % (Auto) 93.4 H (34.0-67.9) % Lymph % (Auto) 3.1 L (21.8-53.1) % [place] % (Auto) 3.2 L (5.3-12.2) % Eos % (Auto) 0 L (0.8-7.0) Baso % (Auto) 0.0 L (0.1-1.2) % Neut # (Auto) 8.82 H (1.78-5.38) K/mm3 Lymph # (Auto) 0.29 L (1.32-3.57) K/mm3 [place] # (Auto) 0.30 (0.30-0.82) K/mm3 Eos # (Auto) 0.00 L (0.04-0.54) K/mm3 Baso # (Auto) 0.00 L (0.01-0.08) K/mm3 Manual Slide Review Abnormal smear Sodium 132 L (136-145) mEq/L Potassium 4.4 (3.5-5.1) mEq/L Chloride 96 L (98-107) mEq/L Carbon Dioxide 17 L (21-32) mEq/L Anion Gap 23.4 H (5-15) BUN 30 H (7-18) mg/dL Creatinine 2.2 H (0.7-1.3) mg/dL Est Cr Clr Drug Dosing 23.50 mL/min Estimated GFR (MDRD) 28 (>60) mL/min BUN/Creatinine Ratio 13.6 L (14-18) Glucose 446 H (83-115) mg/dL POC Glucose (83-110) mg/dL Lactic Acid (0.4-2.0) mmol/L Calcium 9.2 (8.5-10.1) mg/dL Magnesium (1.8-2.4) mg/dl Total Bilirubin 1.4 H (0.2-1.0) mg/dL Direct Bilirubin (0.0-0.2) mg/dl GGT (15-85) U/L AST 24 (15-37) U/L ALT 51 (16-63) U/L Alkaline Phosphatase 81 (46-116) U/L Troponin I < 0.017 (0.00-0.056) ng/mL C-Reactive Protein 25.3 H* (<1.0) mg/dL NT-Pro-B Natriuret Pep 2950 H (0-450) pg/mL Total Protein 6.5 (6.4-8.2) g/dl Albumin 3.3 L (3.4-5.0) g/dl Globulin 3.2 gm/dL Albumin/Globulin Ratio 1.0 (1-2) Lipase (73-393) U/L Urine Color (Yellow) Urine Appearance (Clear) Urine pH (5.0-8.0) Ur Specific [place] (1.005-1.030) Urine Protein (Negative) Urine Glucose (UA) (Negative) Urine Ketones (Negative) Urine Occult Blood (Negative) Urine Nitrite (Negative) Urine Bilirubin (Negative) Urine Urobilinogen (0.2-1.0) Ur Leukocyte Esterase (Negative) Urine RBC (0-5) /hpf Urine WBC (0-5) /hpf Ur Squamous Epith Cells (0-5) /hpf Amorphous Sediment (NOT SEEN) /hpf Urine Bacteria (FEW) /hpf Urine Mucus (FEW) /hpf Ketones (0.0-0.3) mM Influenza Type A RNA (NEGATIVE) Influenza Type B RNA (NEGATIVE) SARS-CoV-2 RNA (SPENCER) (NEGATIVE) 05/20/20 05/20/20 05/20/20 Range/Units 13:30 13:30 13:30 WBC (4.23-9.07) K/mm3 RBC (4.63-6.08) M/mm3 Hgb (13.7-17.5) gm/dl Hct (40.1-51.0) % MCV (79.0-92.2) fl MCH (25.7-32.2) pg MCHC (32.2-35.5) g/dl RDW Std Deviation (35.1-43.9) fL Plt Count (163-337) K/mm3 MPV (9.4-12.3) fl Neut % (Auto) (34.0-67.9) % Lymph % (Auto) (21.8-53.1) % [place] % (Auto) (5.3-12.2) % Eos % (Auto) (0.8-7.0) Baso % (Auto) (0.1-1.2) % Neut # (Auto) (1.78-5.38) K/mm3 Lymph # (Auto) (1.32-3.57) K/mm3 [place] # (Auto) (0.30-0.82) K/mm3 Eos # (Auto) (0.04-0.54) K/mm3 Baso # (Auto) (0.01-0.08) K/mm3 Manual Slide Review Sodium (136-145) mEq/L Potassium (3.5-5.1) mEq/L Chloride (98-107) mEq/L Carbon Dioxide (21-32) mEq/L Anion Gap (5-15) BUN (7-18) mg/dL Creatinine (0.7-1.3) mg/dL Est Cr Clr Drug Dosing mL/min Estimated GFR (MDRD) (>60) mL/min BUN/Creatinine Ratio (14-18) Glucose (83-115) mg/dL POC Glucose (83-110) mg/dL Lactic Acid 5.9 H* (0.4-2.0) mmol/L Calcium (8.5-10.1) mg/dL Magnesium 1.4 L (1.8-2.4) mg/dl Total Bilirubin (0.2-1.0) mg/dL Direct Bilirubin (0.0-0.2) mg/dl GGT 138 H (15-85) U/L AST (15-37) U/L ALT (16-63) U/L Alkaline Phosphatase (46-116) U/L Troponin I (0.00-0.056) ng/mL C-Reactive Protein (<1.0) mg/dL NT-Pro-B Natriuret Pep (0-450) pg/mL Total Protein (6.4-8.2) g/dl Albumin (3.4-5.0) g/dl Globulin gm/dL Albumin/Globulin Ratio (1-2) Lipase 178 (73-393) U/L Urine Color (Yellow) Urine Appearance (Clear) Urine pH (5.0-8.0) Ur Specific [place] (1.005-1.030) Urine Protein (Negative) Urine Glucose (UA) (Negative) Urine Ketones (Negative) Urine Occult Blood (Negative) Urine Nitrite (Negative) Urine Bilirubin (Negative) Urine Urobilinogen (0.2-1.0) Ur Leukocyte Esterase (Negative) Urine RBC (0-5) /hpf Urine WBC (0-5) /hpf Ur Squamous Epith Cells (0-5) /hpf Amorphous Sediment (NOT SEEN) /hpf Urine Bacteria (FEW) /hpf Urine Mucus (FEW) /hpf Ketones (0.0-0.3) mM Influenza Type A RNA (NEGATIVE) Influenza Type B RNA (NEGATIVE) SARS-CoV-2 RNA (SPNECER) (NEGATIVE) 05/20/20 05/20/20 05/20/20 Range/Units 13:30 14:30 15:50 WBC (4.23-9.07) K/mm3 RBC (4.63-6.08) M/mm3 Hgb (13.7-17.5) gm/dl Hct (40.1-51.0) % MCV (79.0-92.2) fl MCH (25.7-32.2) pg MCHC (32.2-35.5) g/dl RDW Std Deviation (35.1-43.9) fL Plt Count (163-337) K/mm3 MPV (9.4-12.3) fl Neut % (Auto) (34.0-67.9) % Lymph % (Auto) (21.8-53.1) % [place] % (Auto) (5.3-12.2) % Eos % (Auto) (0.8-7.0) Baso % (Auto) (0.1-1.2) % Neut # (Auto) (1.78-5.38) K/mm3 Lymph # (Auto) (1.32-3.57) K/mm3 [place] # (Auto) (0.30-0.82) K/mm3 Eos # (Auto) (0.04-0.54) K/mm3 Baso # (Auto) (0.01-0.08) K/mm3 Manual Slide Review Sodium (136-145) mEq/L Potassium (3.5-5.1) mEq/L Chloride (98-107) mEq/L Carbon Dioxide (21-32) mEq/L Anion Gap (5-15) BUN (7-18) mg/dL Creatinine (0.7-1.3) mg/dL Est Cr Clr Drug Dosing mL/min Estimated GFR (MDRD) (>60) mL/min BUN/Creatinine Ratio (14-18) Glucose (83-115) mg/dL POC Glucose (83-110) mg/dL Lactic Acid (0.4-2.0) mmol/L Calcium (8.5-10.1) mg/dL Magnesium (1.8-2.4) mg/dl Total Bilirubin (0.2-1.0) mg/dL Direct Bilirubin (0.0-0.2) mg/dl GGT (15-85) U/L AST (15-37) U/L ALT (16-63) U/L Alkaline Phosphatase (46-116) U/L Troponin I (0.00-0.056) ng/mL C-Reactive Protein (<1.0) mg/dL NT-Pro-B Natriuret Pep (0-450) pg/mL Total Protein (6.4-8.2) g/dl Albumin (3.4-5.0) g/dl Globulin gm/dL Albumin/Globulin Ratio (1-2) Lipase (73-393) U/L Urine Color Dark yellow (Yellow) Urine Appearance Clear (Clear) Urine pH 5.5 (5.0-8.0) Ur Specific [place] 1.025 (1.005-1.030) Urine Protein 1+ H (Negative) Urine Glucose (UA) 2+ H (Negative) Urine Ketones 1+ H (Negative) Urine Occult Blood Negative (Negative) Urine Nitrite Negative (Negative) Urine Bilirubin 1+ H (Negative) Urine Urobilinogen 0.2 (0.2-1.0) Ur Leukocyte Esterase Negative (Negative) Urine RBC 5-10 H (0-5) /hpf Urine WBC 0-5 (0-5) /hpf Ur Squamous Epith Cells 0-5 (0-5) /hpf Amorphous Sediment Few H (NOT SEEN) /hpf Urine Bacteria Few (FEW) /hpf Urine Mucus Moderate H (FEW) /hpf Ketones 0.99 (0.0-0.3) mM Influenza Type A RNA Negative (NEGATIVE) Influenza Type B RNA Negative (NEGATIVE) SARS-CoV-2 RNA (SPENCER) Negative (NEGATIVE) 05/20/20 05/20/20 05/20/20 Range/Units 16:23 16:30 16:30 WBC (4.23-9.07) K/mm3 RBC (4.63-6.08) M/mm3 Hgb (13.7-17.5) gm/dl Hct (40.1-51.0) % MCV (79.0-92.2) fl MCH (25.7-32.2) pg MCHC (32.2-35.5) g/dl RDW Std Deviation (35.1-43.9) fL Plt Count (163-337) K/mm3 MPV (9.4-12.3) fl Neut % (Auto) (34.0-67.9) % Lymph % (Auto) (21.8-53.1) % [place] % (Auto) (5.3-12.2) % Eos % (Auto) (0.8-7.0) Baso % (Auto) (0.1-1.2) % Neut # (Auto) (1.78-5.38) K/mm3 Lymph # (Auto) (1.32-3.57) K/mm3 [place] # (Auto) (0.30-0.82) K/mm3 Eos # (Auto) (0.04-0.54) K/mm3 Baso # (Auto) (0.01-0.08) K/mm3 Manual Slide Review Sodium (136-145) mEq/L Potassium (3.5-5.1) mEq/L Chloride (98-107) mEq/L Carbon Dioxide (21-32) mEq/L Anion Gap (5-15) BUN (7-18) mg/dL Creatinine (0.7-1.3) mg/dL Est Cr Clr Drug Dosing mL/min Estimated GFR (MDRD) (>60) mL/min BUN/Creatinine Ratio (14-18) Glucose (83-115) mg/dL POC Glucose 342 H (83-110) mg/dL Lactic Acid 2.8 H* (0.4-2.0) mmol/L Calcium (8.5-10.1) mg/dL Magnesium (1.8-2.4) mg/dl Total Bilirubin (0.2-1.0) mg/dL Direct Bilirubin 0.50 H (0.0-0.2) mg/dl GGT (15-85) U/L AST (15-37) U/L ALT (16-63) U/L Alkaline Phosphatase (46-116) U/L Troponin I (0.00-0.056) ng/mL C-Reactive Protein (<1.0) mg/dL NT-Pro-B Natriuret Pep (0-450) pg/mL Total Protein (6.4-8.2) g/dl Albumin (3.4-5.0) g/dl Globulin gm/dL Albumin/Globulin Ratio (1-2) Lipase (73-393) U/L Urine Color (Yellow) Urine Appearance (Clear) Urine pH (5.0-8.0) Ur Specific [place] (1.005-1.030) Urine Protein (Negative) Urine Glucose (UA) (Negative) Urine Ketones (Negative) Urine Occult Blood (Negative) Urine Nitrite (Negative) Urine Bilirubin (Negative) Urine Urobilinogen (0.2-1.0) Ur Leukocyte Esterase (Negative) Urine RBC (0-5) /hpf Urine WBC (0-5) /hpf Ur Squamous Epith Cells (0-5) /hpf Amorphous Sediment (NOT SEEN) /hpf Urine Bacteria (FEW) /hpf Urine Mucus (FEW) /hpf Ketones (0.0-0.3) mM Influenza Type A RNA (NEGATIVE) Influenza Type B RNA (NEGATIVE) SARS-CoV-2 RNA (SPENCER) (NEGATIVE) Result Diagrams: 05/20/20 13:30 05/20/20 13:30 Sepsis Event Note - Evaluation Sepsis Screening Result: Severe Sepsis Risk - Focused Exam Vital Signs: Vital Signs Temp Temp Pulse Resp BP Pulse Ox 05/20/20 14:18 39.1 C H 05/20/20 13:29 36.5 C 107 H 35 H 133/73 90 L Problem List Initiated/Reviewed/Updated: Yes Orders Last 24hrs: Active Orders 24 hr Category Date Time Status Admission Status [Patient Status] [ADT] Routine ADT 05/20/20 17:19 Active Patient Status [ADT] Routine ADT 05/20/20 17:12 Ordered Activity as Tolerated [RC] .Routine Care 05/20/20 17:12 Ordered Antiembolic Devices [RC] PER UNIT ROUTINE Care 05/20/20 17:13 Ordered Blood Glucose Check, Bedside [RC] ONETIME Care 05/20/20 16:15 Active EKG Documentation Completion [RC] STAT Care 05/20/20 14:01 Active Oxygen Therapy [RC] PRN Care 05/20/20 17:12 Ordered Peripheral IV Care [RC] . DIRECTED Care 05/20/20 14:01 Active RT Incentive Spirometry [RC] Q1HWA Care 05/20/20 17:12 Ordered Vital Signs [RC] Q4HR Care 05/20/20 17:12 Ordered Nothing Per Oral Diet [DIET] Diet 05/20/20 Breakfast Ordered CBC WITH AUTO DIFF [HEME] AM Lab 05/21/20 05:11 Ordered CMP [COMPREHENSIVE METABOLIC PN,CMP] [CHEM] Routine Lab 05/21/20 05:00 Ordered CULTURE BLOOD [BC] Stat Lab 05/20/20 14:23 Received CULTURE BLOOD [BC] Stat Lab 05/20/20 14:31 Received REFLEX LACTIC ACID YES OR NO [CHEM] Routine Lab 05/20/20 17:05 Received Doxazosin [Cardura] Med 05/21/20 09:00 Ordered 8 mg PO DAILY Heparin Sodium Med 05/20/20 17:15 Ordered 5,000 units SUBCUT Q8H Magnesium Sulfate/Water [Magnesium Sulfate in Water 4 Med 05/20/20 15:18 Active GM/50 ML] 4 gm Premix Bag 1 bag IV ONETIME Morphine Med 05/20/20 17:12 Ordered 1 mg IVPUSH Q4H PRN Sodium Chloride 0.9% @ 75 MLS/HR(1000ml Bag) Med 05/20/20 17:30 Ordered Sodium Chloride 0.9% [Normal Saline] 1,000 ml IV ASDIRECTED Sodium Chloride 0.9% [Normal Saline] 1,000 ml Med 05/20/20 14:02 Active IV NOW Sodium Chloride 0.9% [Saline Flush] Med 05/20/20 14:01 Active 10 ml FLUSH ASDIRECTED PRN cefTRIAXone [Rocephin] 2 gm Med 05/21/20 06:00 Ordered Sodium Chloride 0.9% [Normal Saline] 100 ml IV Q24H oxyCODONE Med 05/20/20 17:12 Ordered 5 mg PO Q4H PRN Blood Culture x2 Reflex Set [OM.PC] Stat Oth 05/20/20 14:01 Ordered Peripheral IV Insertion Adult [OM.PC] Stat Oth 05/20/20 14:00 Ordered Sequential Compression Device [OM.PC] Routine Oth 05/20/20 17:12 Ordered Resuscitation Status Routine Resus Stat 05/20/20 17:12 Ordered Medication Orders Doxazosin Mesylate (Cardura) 8 mg PO DAILY TRE Heparin Sodium (Porcine) (Heparin Sodium) 5,000 units SUBCUT Q8H TRE Sodium Chloride (Normal Saline) 1,000 mls @ 150 mls/hr IV NOW STA Stop: 05/20/20 20:41 Last Admin: 05/20/20 14:32 Dose: 150 mls/hr Documented by: JAVI Magnesium Sulfate 4 gm/ Premix 50 mls @ 12.5 mls/hr IV ONETIME ONE Stop: 05/20/20 19:17 Last Admin: 05/20/20 15:48 Dose: 12.5 mls/hr Documented by: JOSE Ceftriaxone Sodium 2 gm/ (Sodium Chloride) 100 mls @ 200 mls/hr IV Q24H TRE Sodium Chloride (Normal Saline) 1,000 mls @ 75 mls/hr IV ASDIRECTED TRE Morphine Sulfate (Morphine) 1 mg IVPUSH Q4H PRN PRN Reason: Pain (severe 7-10) Oxycodone HCl (Oxycodone) 5 mg PO Q4H PRN PRN Reason: Pain (moderate 4-6) Sodium Chloride (Saline Flush) 10 ml FLUSH ASDIRECTED PRN PRN Reason: Keep Vein Open Last Admin: 05/20/20 14:32 Dose: 10 ml Documented by: JAVI Assessment/Plan Comment:: Patient with right upper quadrant pain, fever, and slight hyperbilirubinemia. Imaging findings show gallstones with evidence of cholecystitis. My concern is for cholangitis. MRCP is not available. US images are poor but CBD does not appear to be dilated given the patient's age. Most of the biliruin is indirect. I discussed options for transfer to [place] where ERCP is available, as well as for cholecystostomy tube placement with IR if needed. The other option is for admission here, fluids and antibiotics, and reassessment including new labs in the morning. If the patient's condition worsens I think he will require transfer in order to have ERCP available given findings suggestive of cholangitis. However, if the patient is improved, we may plan for laparoscopic cholecystectomy with intraoperative cholangiogram vs laparoscopic cholecystostomy tube placement here. This is the patient and his family's preference. I will consult Dr. Arriaza to assist in management of the patient in the ICU, namely regarding his diabetes and elevated glucose.
[2020-05-20] MEDS ORDERED: Sodium Chloride 0.9% 1,000 ML IV SCH ×2 (17:30→21:45)
[2020-05-20] MEDS: Heparin Sodium 5,000 Units/ML Vial SUBCUT SCH (18:17)
--- NOTE | 2020-05-20 20:15 | PCM.CONS ---
H&P History of Present Illness - General Date of Service: 05/20/20 Admit Problem/Dx: Admission Diagnosis/Problem Admission Diagnosis/Problem Cholecystitis - History of Present Illness Initial Comments - Free Text/Narative: 81-year-old male who presented to the emergency department yesterday and represented today with initially left upper quadrant pain that then shifted to the right upper quadrant. Lab work demonstrated that he had blood sugar above 400 normal ketones, white blood cell count of 9.4, mild thrombocytopenia 114 hyponatremia of 132, chronic stage IV renal insufficiency versus acute on chronic renal insufficiency, hypomagnesemia, and elevated proBNP. Patient then had an ultrasound that showed a suboptimal exam but did demonstrate a 1.8 cm stone in the gallbladder. The gallbladder wall was slightly thickened with minimal pericholecystic edema. Findings were suspicious for acute cholecyst itis. Common bile duct was not well visualized but measures mildly prominent at 8 mm. Chest x-ray did not show any significant parenchymal changes. Medicine was consulted secondary to the patient's severe hyperglycemia. Patient is normally on Trulicity and Glucophage. He is not insulin-dependent. In the emergency department he was given Humalog 5 units x 2 with his most recent blood sugars in the upper 200s. Patient is on 2 L of oxygen via nasal cannula at 98%. Left Lower Abdominal Pain Score (Numeric/FACES): 4 - Related Data Allergies/Adverse Reactions: Allergies Allergy/AdvReac Type Severity Reaction Status Date / Time lisinopril Allergy Liver Verified 05/20/20 13:38 Problems Sulfa (Sulfonamide Allergy Hives Verified 05/20/20 13:38 Antibiotics) Home Medications: Home Meds Aspirin 81 mg PO DAILY 03/12/18 [History] Doxazosin [Doxazosin Mesylate] 8 mg PO DAILY 03/12/18 [History] Dulaglutide [Trulicity] 1.5 mg SQ TH 03/12/18 [History] Gabapentin [Neurontin] 300 mg PO BID 03/12/18 [History] Hyoscyamine Sulfate [Levsin-Sl] 0.125 mg SL ASDIRECTED #6 tab.subl 03/12/18 [Rx] metFORMIN [Glucophage] 500 mg PO BIDMEALS 05/20/20 [History] Past Medical History Cardiovascular History: Reports: Hypertension Respiratory History: Reports: COPD Gastrointestinal History: Reports: Pancreatitis Genitourinary History: Reports: BPH, Diabetic Nephropathy Musculoskeletal History: Reports: Fracture, Osteoarthritis Endocrine/Metabolic History: Reports: Diabetes, Type II Dermatologic History: Reports: Other (See Below) Other Dermatologic History: 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 Many moles throughout body. - Infectious Disease History Infectious Disease History: Reports: Chicken Pox, Measles, Mumps - Past Surgical History HEENT Surgical History: Reports: Cataract Surgery, Other (See Below) GI Surgical History: Reports: Appendectomy, Hernia, Inguinal Neurological Surgical History: Reports: Lumbar Spine Social & Family History - Family History Family Medical History: Unobtainable - Tobacco Use Tobacco Use Status *Q: Never Tobacco User Second Hand Smoke Exposure: No - Caffeine Use Caffeine Use: Reports: Coffee - Recreational Drug Use Recreational Drug Use: No - Living Situation & Occupation Living situation: Reports: , with Spouse, with Family (Daughter) Occupation: Retired H&P Review of Systems - Review of Systems: Review Of Systems: Comprehensive ROS is negative, except as noted in HPI. Exam - Exam Exam: See Below - Vital Signs Vital Signs: Last Vital Signs Temp 98.1 F 05/20/20 20:00 Pulse 107 H 05/20/20 13:29 Resp 19 05/20/20 20:00 BP 122/57 L 05/20/20 20:00 Pulse Ox 98 05/20/20 20:00 Weight: 210 lb 14.4 oz - Exam Quality Assessment: Supplemental Oxygen General: Alert, Oriented, 4 HEENT: Conjunctiva Clear, Mucosa Moist & [place], Nares Patent, Normal Nasal Septum Neck: Supple, Trachea Midline, 2 Lungs: Normal Respiratory Effort, Rales Cardiovascular: Regular Rate, Regular Rhythm GI/Abdominal Exam: No Organomegaly, No Distention, No Abnormal Bruit, Tender (Right upper quadrant tenderness), Abnormal Bowel Sounds (Decreased). No: Normal Bowel Sounds Extremities: Normal Inspection, Normal Capillary Refill, Pedal Edema (2+) - Patient Data Lab Results Last 24 hrs: Laboratory Results - last 24 hr 05/20/20 05/20/20 05/20/20 Range/Units 13:30 13:30 13:30 WBC 9.44 H (4.23-9.07) K/mm3 RBC 4.50 L (4.63-6.08) M/mm3 Hgb 14.0 (13.7-17.5) gm/dl Hct 42.3 (40.1-51.0) % MCV 94.0 H (79.0-92.2) fl MCH 31.1 (25.7-32.2) pg MCHC 33.1 (32.2-35.5) g/dl RDW Std Deviation 44.6 H (35.1-43.9) fL Plt Count 114 L (163-337) K/mm3 MPV 11.4 (9.4-12.3) fl Neut % (Auto) 93.4 H (34.0-67.9) % Lymph % (Auto) 3.1 L (21.8-53.1) % [place] % (Auto) 3.2 L (5.3-12.2) % Eos % (Auto) 0 L (0.8-7.0) Baso % (Auto) 0.0 L (0.1-1.2) % Neut # (Auto) 8.82 H (1.78-5.38) K/mm3 Lymph # (Auto) 0.29 L (1.32-3.57) K/mm3 [place] # (Auto) 0.30 (0.30-0.82) K/mm3 Eos # (Auto) 0.00 L (0.04-0.54) K/mm3 Baso # (Auto) 0.00 L (0.01-0.08) K/mm3 Manual Slide Review Abnormal smear Sodium 132 L (136-145) mEq/L Potassium 4.4 (3.5-5.1) mEq/L Chloride 96 L (98-107) mEq/L Carbon Dioxide 17 L (21-32) mEq/L Anion Gap 23.4 H (5-15) BUN 30 H (7-18) mg/dL Creatinine 2.2 H (0.7-1.3) mg/dL Est Cr Clr Drug Dosing 23.50 mL/min Estimated GFR (MDRD) 28 (>60) mL/min BUN/Creatinine Ratio 13.6 L (14-18) Glucose 446 H (83-115) mg/dL POC Glucose (83-110) mg/dL Lactic Acid (0.4-2.0) mmol/L Calcium 9.2 (8.5-10.1) mg/dL Magnesium (1.8-2.4) mg/dl Total Bilirubin 1.4 H (0.2-1.0) mg/dL Direct Bilirubin (0.0-0.2) mg/dl GGT (15-85) U/L AST 24 (15-37) U/L ALT 51 (16-63) U/L Alkaline Phosphatase 81 (46-116) U/L Troponin I < 0.017 (0.00-0.056) ng/mL C-Reactive Protein 25.3 H* (<1.0) mg/dL NT-Pro-B Natriuret Pep 2950 H (0-450) pg/mL Total Protein 6.5 (6.4-8.2) g/dl Albumin 3.3 L (3.4-5.0) g/dl Globulin 3.2 gm/dL Albumin/Globulin Ratio 1.0 (1-2) Lipase (73-393) U/L Urine Color (Yellow) Urine Appearance (Clear) Urine pH (5.0-8.0) Ur Specific Barney (1.005-1.030) Urine Protein (Negative) Urine Glucose (UA) (Negative) Urine Ketones (Negative) Urine Occult Blood (Negative) Urine Nitrite (Negative) Urine Bilirubin (Negative) Urine Urobilinogen (0.2-1.0) Ur Leukocyte Esterase (Negative) Urine RBC (0-5) /hpf Urine WBC (0-5) /hpf Ur Squamous Epith Cells (0-5) /hpf Amorphous Sediment (NOT SEEN) /hpf Urine Bacteria (FEW) /hpf Urine Mucus (FEW) /hpf Ketones (0.0-0.3) mM Influenza Type A RNA (NEGATIVE) Influenza Type B RNA (NEGATIVE) SARS-CoV-2 RNA (SPENCER) (NEGATIVE) 05/20/20 05/20/20 05/20/20 Range/Units 13:30 13:30 13:30 WBC (4.23-9.07) K/mm3 RBC (4.63-6.08) M/mm3 Hgb (13.7-17.5) gm/dl Hct (40.1-51.0) % MCV (79.0-92.2) fl MCH (25.7-32.2) pg MCHC (32.2-35.5) g/dl RDW Std Deviation (35.1-43.9) fL Plt Count (163-337) K/mm3 MPV (9.4-12.3) fl Neut % (Auto) (34.0-67.9) % Lymph % (Auto) (21.8-53.1) % [place] % (Auto) (5.3-12.2) % Eos % (Auto) (0.8-7.0) Baso % (Auto) (0.1-1.2) % Neut # (Auto) (1.78-5.38) K/mm3 Lymph # (Auto) (1.32-3.57) K/mm3 [place] # (Auto) (0.30-0.82) K/mm3 Eos # (Auto) (0.04-0.54) K/mm3 Baso # (Auto) (0.01-0.08) K/mm3 Manual Slide Review Sodium (136-145) mEq/L Potassium (3.5-5.1) mEq/L Chloride (98-107) mEq/L Carbon Dioxide (21-32) mEq/L Anion Gap (5-15) BUN (7-18) mg/dL Creatinine (0.7-1.3) mg/dL Est Cr Clr Drug Dosing mL/min Estimated GFR (MDRD) (>60) mL/min BUN/Creatinine Ratio (14-18) Glucose (83-115) mg/dL POC Glucose (83-110) mg/dL Lactic Acid 5.9 H* (0.4-2.0) mmol/L Calcium (8.5-10.1) mg/dL Magnesium 1.4 L (1.8-2.4) mg/dl Total Bilirubin (0.2-1.0) mg/dL Direct Bilirubin (0.0-0.2) mg/dl GGT 138 H (15-85) U/L AST (15-37) U/L ALT (16-63) U/L Alkaline Phosphatase (46-116) U/L Troponin I (0.00-0.056) ng/mL C-Reactive Protein (<1.0) mg/dL NT-Pro-B Natriuret Pep (0-450) pg/mL Total Protein (6.4-8.2) g/dl Albumin (3.4-5.0) g/dl Globulin gm/dL Albumin/Globulin Ratio (1-2) Lipase 178 (73-393) U/L Urine Color (Yellow) Urine Appearance (Clear) Urine pH (5.0-8.0) Ur Specific [place] (1.005-1.030) Urine Protein (Negative) Urine Glucose (UA) (Negative) Urine Ketones (Negative) Urine Occult Blood (Negative) Urine Nitrite (Negative) Urine Bilirubin (Negative) Urine Urobilinogen (0.2-1.0) Ur Leukocyte Esterase (Negative) Urine RBC (0-5) /hpf Urine WBC (0-5) /hpf Ur Squamous Epith Cells (0-5) /hpf Amorphous Sediment (NOT SEEN) /hpf Urine Bacteria (FEW) /hpf Urine Mucus (FEW) /hpf Ketones (0.0-0.3) mM Influenza Type A RNA (NEGATIVE) Influenza Type B RNA (NEGATIVE) SARS-CoV-2 RNA (SPENCER) (NEGATIVE) 05/20/20 05/20/20 05/20/20 Range/Units 13:30 14:30 15:50 WBC (4.23-9.07) K/mm3 RBC (4.63-6.08) M/mm3 Hgb (13.7-17.5) gm/dl Hct (40.1-51.0) % MCV (79.0-92.2) fl MCH (25.7-32.2) pg MCHC (32.2-35.5) g/dl RDW Std Deviation (35.1-43.9) fL Plt Count (163-337) K/mm3 MPV (9.4-12.3) fl Neut % (Auto) (34.0-67.9) % Lymph % (Auto) (21.8-53.1) % [place] % (Auto) (5.3-12.2) % Eos % (Auto) (0.8-7.0) Baso % (Auto) (0.1-1.2) % Neut # (Auto) (1.78-5.38) K/mm3 Lymph # (Auto) (1.32-3.57) K/mm3 [place] # (Auto) (0.30-0.82) K/mm3 Eos # (Auto) (0.04-0.54) K/mm3 Baso # (Auto) (0.01-0.08) K/mm3 Manual Slide Review Sodium (136-145) mEq/L Potassium (3.5-5.1) mEq/L Chloride (98-107) mEq/L Carbon Dioxide (21-32) mEq/L Anion Gap (5-15) BUN (7-18) mg/dL Creatinine (0.7-1.3) mg/dL Est Cr Clr Drug Dosing mL/min Estimated GFR (MDRD) (>60) mL/min BUN/Creatinine Ratio (14-18) Glucose (83-115) mg/dL POC Glucose (83-110) mg/dL Lactic Acid (0.4-2.0) mmol/L Calcium (8.5-10.1) mg/dL Magnesium (1.8-2.4) mg/dl Total Bilirubin (0.2-1.0) mg/dL Direct Bilirubin (0.0-0.2) mg/dl GGT (15-85) U/L AST (15-37) U/L ALT (16-63) U/L Alkaline Phosphatase (46-116) U/L Troponin I (0.00-0.056) ng/mL C-Reactive Protein (<1.0) mg/dL NT-Pro-B Natriuret Pep (0-450) pg/mL Total Protein (6.4-8.2) g/dl Albumin (3.4-5.0) g/dl Globulin gm/dL Albumin/Globulin Ratio (1-2) Lipase (73-393) U/L Urine Color Dark yellow (Yellow) Urine Appearance Clear (Clear) Urine pH 5.5 (5.0-8.0) Ur Specific [place]ney 1.025 (1.005-1.030) Urine Protein 1+ H (Negative) Urine Glucose (UA) 2+ H (Negative) Urine Ketones 1+ H (Negative) Urine Occult Blood Negative (Negative) Urine Nitrite Negative (Negative) Urine Bilirubin 1+ H (Negative) Urine Urobilinogen 0.2 (0.2-1.0) Ur Leukocyte Esterase Negative (Negative) Urine RBC 5-10 H (0-5) /hpf Urine WBC 0-5 (0-5) /hpf Ur Squamous Epith Cells 0-5 (0-5) /hpf Amorphous Sediment Few H (NOT SEEN) /hpf Urine Bacteria Few (FEW) /hpf Urine Mucus Moderate H (FEW) /hpf Ketones 0.99 (0.0-0.3) mM Influenza Type A RNA Negative (NEGATIVE) Influenza Type B RNA Negative (NEGATIVE) SARS-CoV-2 RNA (SPENCER) Negative (NEGATIVE) 05/20/20 05/20/20 05/20/20 Range/Units 16:23 16:30 16:30 WBC (4.23-9.07) K/mm3 RBC (4.63-6.08) M/mm3 Hgb (13.7-17.5) gm/dl Hct (40.1-51.0) % MCV (79.0-92.2) fl MCH (25.7-32.2) pg MCHC (32.2-35.5) g/dl RDW Std Deviation (35.1-43.9) fL Plt Count (163-337) K/mm3 MPV (9.4-12.3) fl Neut % (Auto) (34.0-67.9) % Lymph % (Auto) (21.8-53.1) % [place] % (Auto) (5.3-12.2) % Eos % (Auto) (0.8-7.0) Baso % (Auto) (0.1-1.2) % Neut # (Auto) (1.78-5.38) K/mm3 Lymph # (Auto) (1.32-3.57) K/mm3 [place] # (Auto) (0.30-0.82) K/mm3 Eos # (Auto) (0.04-0.54) K/mm3 Baso # (Auto) (0.01-0.08) K/mm3 Manual Slide Review Sodium (136-145) mEq/L Potassium (3.5-5.1) mEq/L Chloride (98-107) mEq/L Carbon Dioxide (21-32) mEq/L Anion Gap (5-15) BUN (7-18) mg/dL Creatinine (0.7-1.3) mg/dL Est Cr Clr Drug Dosing mL/min Estimated GFR (MDRD) (>60) mL/min BUN/Creatinine Ratio (14-18) Glucose (83-115) mg/dL POC Glucose 342 H (83-110) mg/dL Lactic Acid 2.8 H* (0.4-2.0) mmol/L Calcium (8.5-10.1) mg/dL Magnesium (1.8-2.4) mg/dl Total Bilirubin (0.2-1.0) mg/dL Direct Bilirubin 0.50 H (0.0-0.2) mg/dl GGT (15-85) U/L AST (15-37) U/L ALT (16-63) U/L Alkaline Phosphatase (46-116) U/L Troponin I (0.00-0.056) ng/mL C-Reactive Protein (<1.0) mg/dL NT-Pro-B Natriuret Pep (0-450) pg/mL Total Protein (6.4-8.2) g/dl Albumin (3.4-5.0) g/dl Globulin gm/dL Albumin/Globulin Ratio (1-2) Lipase (73-393) U/L Urine Color (Yellow) Urine Appearance (Clear) Urine pH (5.0-8.0) Ur Specific [place] (1.005-1.030) Urine Protein (Negative) Urine Glucose (UA) (Negative) Urine Ketones (Negative) Urine Occult Blood (Negative) Urine Nitrite (Negative) Urine Bilirubin (Negative) Urine Urobilinogen (0.2-1.0) Ur Leukocyte Esterase (Negative) Urine RBC (0-5) /hpf Urine WBC (0-5) /hpf Ur Squamous Epith Cells (0-5) /hpf Amorphous Sediment (NOT SEEN) /hpf Urine Bacteria (FEW) /hpf Urine Mucus (FEW) /hpf Ketones (0.0-0.3) mM Influenza Type A RNA (NEGATIVE) Influenza Type B RNA (NEGATIVE) SARS-CoV-2 RNA (SPENCER) (NEGATIVE) 05/20/20 05/20/20 Range/Units 18:12 19:03 WBC (4.23-9.07) K/mm3 RBC (4.63-6.08) M/mm3 Hgb (13.7-17.5) gm/dl Hct (40.1-51.0) % MCV (79.0-92.2) fl MCH (25.7-32.2) pg MCHC (32.2-35.5) g/dl RDW Std Deviation (35.1-43.9) fL Plt Count (163-337) K/mm3 MPV (9.4-12.3) fl Neut % (Auto) (34.0-67.9) % Lymph % (Auto) (21.8-53.1) % [place] % (Auto) (5.3-12.2) % Eos % (Auto) (0.8-7.0) Baso % (Auto) (0.1-1.2) % Neut # (Auto) (1.78-5.38) K/mm3 Lymph # (Auto) (1.32-3.57) K/mm3 [place] # (Auto) (0.30-0.82) K/mm3 Eos # (Auto) (0.04-0.54) K/mm3 Baso # (Auto) (0.01-0.08) K/mm3 Manual Slide Review Sodium (136-145) mEq/L Potassium (3.5-5.1) mEq/L Chloride (98-107) mEq/L Carbon Dioxide (21-32) mEq/L Anion Gap (5-15) BUN (7-18) mg/dL Creatinine (0.7-1.3) mg/dL Est Cr Clr Drug Dosing mL/min Estimated GFR (MDRD) (>60) mL/min BUN/Creatinine Ratio (14-18) Glucose (83-115) mg/dL POC Glucose 297 H 263 H (83-110) mg/dL Lactic Acid (0.4-2.0) mmol/L Calcium (8.5-10.1) mg/dL Magnesium (1.8-2.4) mg/dl Total Bilirubin (0.2-1.0) mg/dL Direct Bilirubin (0.0-0.2) mg/dl GGT (15-85) U/L AST (15-37) U/L ALT (16-63) U/L Alkaline Phosphatase (46-116) U/L Troponin I (0.00-0.056) ng/mL C-Reactive Protein (<1.0) mg/dL NT-Pro-B Natriuret Pep (0-450) pg/mL Total Protein (6.4-8.2) g/dl Albumin (3.4-5.0) g/dl Globulin gm/dL Albumin/Globulin Ratio (1-2) Lipase (73-393) U/L Urine Color (Yellow) Urine Appearance (Clear) Urine pH (5.0-8.0) Ur Specific Barney (1.005-1.030) Urine Protein (Negative) Urine Glucose (UA) (Negative) Urine Ketones (Negative) Urine Occult Blood (Negative) Urine Nitrite (Negative) Urine Bilirubin (Negative) Urine Urobilinogen (0.2-1.0) Ur Leukocyte Esterase (Negative) Urine RBC (0-5) /hpf Urine WBC (0-5) /hpf Ur Squamous Epith Cells (0-5) /hpf Amorphous Sediment (NOT SEEN) /hpf Urine Bacteria (FEW) /hpf Urine Mucus (FEW) /hpf Ketones (0.0-0.3) mM Influenza Type A RNA (NEGATIVE) Influenza Type B RNA (NEGATIVE) SARS-CoV-2 RNA (SPENCER) (NEGATIVE) Result Diagrams: 05/20/20 13:30 05/20/20 13:30 Sepsis Event Note - Evaluation Sepsis Screening Result: No Definite Risk - Focused Exam Vital Signs: Vital Signs Temp Temp Pulse Resp BP Pulse Ox Pulse Ox 05/20/20 20:00 98.1 F 19 122/57 L 98 05/20/20 17:12 98 05/20/20 14:18 102.4 F H 05/20/20 13:29 97.7 F 107 H 35 H 133/73 90 L Consult PN Assessment/Plan POD#: 0 Procedures: Procedures ASSAY OF AMYLASE (03/12/18) ASSAY OF MAGNESIUM (03/12/18) ASSAY OF NATRIURETIC PEPTIDE (03/12/18) ASSAY OF TROPONIN QUANT (03/12/18) BL SMEAR W/DIFF WBC COUNT (03/12/18) C-REACTIVE PROTEIN (03/12/18) COMPLETE CBC AUTOMATED (03/12/18) COMPREHEN METABOLIC PANEL (03/12/18) CREATINE MB FRACTION (03/12/18) CT THORAX DX C- (01/18/15) ELECTROCARDIOGRAM TRACING (03/12/18) EMERGENCY DEPT VISIT (03/12/18) HYDRATE IV INFUSION ADD-ON (03/12/18) PROTHROMBIN TIME (03/12/18) ROUTINE VENIPUNCTURE (03/12/18) THER/PROPH/DIAG INJ IV PUSH (03/12/18) TX/PRO/DX INJ NEW DRUG ADDON (03/12/18) X-RAY EXAM ABDOMEN 1 VIEW (03/12/18) X-RAY EXAM CHEST 1 VIEW (03/12/18) (1) Severe sepsis SNOMED Code(s): 68485651 Code(s): A41.9 - SEPSIS, UNSPECIFIED ORGANISM; R65.20 - SEVERE SEPSIS WITHOUT SEPTIC SHOCK Current Visit: Yes (2) Cholecystitis, acute SNOMED Code(s): 51301211 Code(s): K81.0 - ACUTE CHOLECYSTITIS Current Visit: Yes (3) Hyperglycemia due to type 2 diabetes mellitus SNOMED Code(s): 855377200333337, 276468324036899 Code(s): E11.65 - TYPE 2 DIABETES MELLITUS WITH HYPERGLYCEMIA Current Visit : Yes Qualifiers: Diabetes mellitus detention insulin use: without detention use Qualified Code(s): E11.65 - Type 2 diabetes mellitus with hyperglycemia (4) Hypomagnesemia SNOMED Code(s): 138345758 Code(s): E83.42 - HYPOMAGNESEMIA Current Visit: Yes (5) Acute renal failure SNOMED Code(s): 99665034 Code(s): N17.9 - ACUTE KIDNEY FAILURE, UNSPECIFIED Current Visit: Yes (6) Acute HF (heart failure) SNOMED Code(s): 81992766 Code(s): I50.9 - HEART FAILURE, UNSPECIFIED Current Visit: Yes Problem List Initiated/Reviewed/Updated: Yes Plan: 89-year-old male with past medical history of diabetes and hypertension presents with right upper quadrant and fever consistent with cholangitis. Medicine consulted for blood sugar control preoperatively. Patient also has peripheral edema which appears to be new. His BNP is significantly elevated at 2950, lung exam shows crackles throughout, and patient requires O2. When he was seen yesterday morning BNP was normal at 172. He clearly has some degree of fluid overload, and likely in an 89-year-old individual he has some reduction in his cardiac function and likely diastolic dysfunction. This should not be a contraindication for surgery, since that is the definitive treatment for his sepsis caused by cholangitis, but fluid resuscitation needs to be tailored to both urinary output and endorgan perfusion. Patient also has significant reduction in GFR. Continue to monitor closely, baseline is not known. Plan * Follow blood sugars every 2 hours until fingerstick blood sugar is less than 200. * Patient is n.p.o. * Most recent blood sugar is 260, therefore will give 3 units recheck in 2 hours and base next insulin dose on results of fingerstick blood sugar in 2 hours. * Thank you for allowing me to participate in the care of this patient.
[2020-05-20] MEDS ORDERED: Dextrose 5%-0.9% NaCl 1,000 ML IV SCH (21:45)
[2020-05-21] MEDS: Heparin Sodium 5,000 Units/ML Vial SUBCUT SCH ×3 (00:16→16:27)
[2020-05-21] MEDS ORDERED: Magnesium Sulfate/Water 4 GM in Premix Bag 1 BAG IV ONE ×2 (07:32→09:30)
--- NOTE | 2020-05-21 08:23 | PCM.SN.2 ---
- Free Text/Narrative Note: 89 yo man presented yesterday with sepsis stemming from infected cholecystitis. Stable in the ICU overnight with some improvement in Creatinine from 2.2 to 1.7. Sodium down from 132 to 124. Total bilirubin down to 1.1 from 1.4 WBC stable at 9. Glucose is better controlled but still around 200. Patient appears uncomfortable and tachypneic this morning. VSS, no fever since admission. Blood cultures show gram negative rods, on ceftriaxone since arrival to ER. Discussed findings and status with patient and his daughters. Source of infection appears to be gallbladder, without evidence of common bile duct obstruction. Plan for laparoscopic cholecystectomy as discussed yesterday, with plan for cholecystostomy tube if operation is deemed unsafe or patient appears unstable in the operating room. Guarded prognosis. Patient is DNR/DNI, which I discussed with him yesterday in the ER.
[2020-05-21] MEDS ORDERED: Lidocaine 1% with EPINEPHrine 1:100,000 20 ML MDV ONE (08:35)
--- NOTE | 2020-05-21 08:41 | PCM.SN.2 ---
- Free Text/Narrative Note: Patient and family in agreement to temporarlily suspend DNI for laparoscopic cholecystectomy. Patient wants to avoid any prolonged intubation in the ICU but wishes to go forward with general endotracheal anesthesia for his operation.
--- NOTE | 2020-05-21 08:48 | PCM.PREANE ---
Preanesthetic Assessment - Procedure Proposed Procedure: Cholecystectomy, laparoscopic - Anesthesia/Transfusion/Family Hx Anesthesia History: Prior Anesthesia Without Reaction - Review of Systems General: Weakness Pulmonary: Shortness of Breath, Other (Supplemental oxygen) Cardiovascular: No Symptoms Gastrointestinal: Other (abdominal tenderness, dimimished bowel sounds) Neurological: Other (Diabetic neuropathy, chronic back pain) Other: Reports: Diabetes - Physical Assessment NPO Status Date: 05/20/20 NPO Status Time: 10:00 Vital Signs: Last Vital Signs Temp 98.6 F 05/21/20 08:00 Pulse 107 H 05/20/20 13:29 Resp 15 05/21/20 08:00 BP 158/72 H 05/21/20 08:05 Pulse Ox 96 05/21/20 08:00 Height: 1.78 m Weight: 95.527 kg ASA Class: 3E Mental Status: Alert & Oriented x3 Airway Class: Mallampati = 3 Dentition: Reports: Normal Dentition Thyro-Mental Finger Breadths: 3 Mouth Opening Finger Breadths: 3 ROM/Head Extension: Limited/Partial Lungs: Clear to Auscultation, Decreased Breath Sounds Cardiovascular: Regular Rate, Regular Rhythm - Lab Values: Laboratory Last Values WBC 9.76 K/mm3 (4.23-9.07) H 05/21/20 04:57 RBC 4.09 M/mm3 (4.63-6.08) L 05/21/20 04:57 Hgb 12.5 gm/dl (13.7-17.5) L D 05/21/20 04:57 Hct 38.8 % (40.1-51.0) L 05/21/20 04:57 MCV 94.9 fl (79.0-92.2) H 05/21/20 04:57 MCH 30.6 pg (25.7-32.2) 05/21/20 04:57 MCHC 32.2 g/dl (32.2-35.5) 05/21/20 04:57 RDW Std Deviation 45.4 fL (35.1-43.9) H 05/21/20 04:57 Plt Count 97 K/mm3 (163-337) L 05/21/20 04:57 MPV 11.4 fl (9.4-12.3) 05/21/20 04:57 Neut % (Auto) 88.0 % (34.0-67.9) H 05/21/20 04:57 Lymph % (Auto) 4.9 % (21.8-53.1) L 05/21/20 04:57 Cache % (Auto) 6.9 % (5.3-12.2) 05/21/20 04:57 Eos % (Auto) 0 (0.8-7.0) L 05/21/20 04:57 Baso % (Auto) 0.0 % (0.1-1.2) L 05/21/20 04:57 Neut # (Auto) 8.59 K/mm3 (1.78-5.38) H 05/21/20 04:57 Lymph # (Auto) 0.48 K/mm3 (1.32-3.57) L 05/21/20 04:57 Cache # (Auto) 0.67 K/mm3 (0.30-0.82) 05/21/20 04:57 Eos # (Auto) 0.00 K/mm3 (0.04-0.54) L 05/21/20 04:57 Baso # (Auto) 0.00 K/mm3 (0.01-0.08) L 05/21/20 04:57 Manual Slide Review Abnormal smear 05/21/20 04:57 Sodium 124 mEq/L (136-145) L 05/21/20 04:57 Potassium 4.0 mEq/L (3.5-5.1) 05/21/20 04:57 Chloride 98 mEq/L (98-107) 05/21/20 04:57 Carbon Dioxide 21 mEq/L (21-32) 05/21/20 04:57 Anion Gap 9.0 (5-15) 05/21/20 04:57 BUN 26 mg/dL (7-18) H 05/21/20 04:57 Creatinine 1.7 mg/dL (0.7-1.3) H 05/21/20 04:57 Est Cr Clr Drug Dosing 30.42 mL/min 05/21/20 04:57 Estimated GFR (MDRD) 38 mL/min (>60) 05/21/20 04:57 BUN/Creatinine Ratio 15.3 (14-18) 05/21/20 04:57 Glucose 239 mg/dL (83-115) H 05/21/20 04:57 POC Glucose 255 mg/dL (83-110) H 05/21/20 08:24 Lactic Acid 2.8 mmol/L (0.4-2.0) H* 05/20/20 19:20 Calcium 8.6 mg/dL (8.5-10.1) 05/21/20 04:57 Magnesium 2.3 mg/dl (1.8-2.4) 05/21/20 04:57 Total Bilirubin 1.1 mg/dL (0.2-1.0) H 05/21/20 04:57 Direct Bilirubin 0.50 mg/dl (0.0-0.2) H 05/20/20 16:30 GGT 138 U/L (15-85) H 05/20/20 13:30 AST 27 U/L (15-37) 05/21/20 04:57 ALT 49 U/L (16-63) 05/21/20 04:57 Alkaline Phosphatase 54 U/L (46-116) 05/21/20 04:57 Troponin I < 0.017 ng/mL (0.00-0.056) 05/20/20 13:30 C-Reactive Protein 25.3 mg/dL (<1.0) H* 05/20/20 13:30 NT-Pro-B Natriuret Pep 2950 pg/mL (0-450) H 05/20/20 13:30 Total Protein 5.7 g/dl (6.4-8.2) L 05/21/20 04:57 Albumin 2.4 g/dl (3.4-5.0) L 05/21/20 04:57 Globulin 3.3 gm/dL 05/21/20 04:57 Albumin/Globulin Ratio 0.7 (1-2) L 05/21/20 04:57 Lipase 178 U/L (73-393) 05/20/20 13:30 Urine Color Dark yellow (Yellow) 05/20/20 15:50 Urine Appearance Clear (Clear) 05/20/20 15:50 Urine pH 5.5 (5.0-8.0) 05/20/20 15:50 Ur Specific [place] 1.025 (1.005-1.030) 05/20/20 15:50 Urine Protein 1+ (Negative) H 05/20/20 15:50 Urine Glucose (UA) 2+ (Negative) H 05/20/20 15:50 Urine Ketones 1+ (Negative) H 05/20/20 15:50 Urine Occult Blood Negative (Negative) 05/20/20 15:50 Urine Nitrite Negative (Negative) 05/20/20 15:50 Urine Bilirubin 1+ (Negative) H 05/20/20 15:50 Urine Urobilinogen 0.2 (0.2-1.0) 05/20/20 15:50 Ur Leukocyte Esterase Negative (Negative) 05/20/20 15:50 Urine RBC 5-10 /hpf (0-5) H 05/20/20 15:50 Urine WBC 0-5 /hpf (0-5) 05/20/20 15:50 Ur Squamous Epith Cells 0-5 /hpf (0-5) 05/20/20 15:50 Amorphous Sediment Few /hpf (NOT SEEN) H 05/20/20 15:50 Urine Bacteria Few /hpf (FEW) 05/20/20 15:50 Urine Mucus Moderate /hpf (FEW) H 05/20/20 15:50 Ketones 0.99 mM (0.0-0.3) 05/20/20 13:30 Influenza Type A RNA Negative (NEGATIVE) 05/20/20 14:30 Influenza Type B RNA Negative (NEGATIVE) 05/20/20 14:30 SARS-CoV-2 RNA (SPENCER) Negative (NEGATIVE) 05/20/20 14:30 - Allergies Allergies/Adverse Reactions: Allergies Allergy/AdvReac Type Severity Reaction Status Date / Time lisinopril Allergy Liver Verified 05/20/20 13:38 Problems Sulfa (Sulfonamide Allergy Hives Verified 05/20/20 13:38 Antibiotics) - Acknowledgements Anesthesia Type Planned: General Anesthesia Pt an Appropriate Candidate for the Planned Anesthesia: Yes Alternatives and Risks of Anesthesia Discussed w Pt/Guardian: Yes Pt/Guardian Understands and Agrees with Anesthesia Plan: Yes Additional Comments: The patient has been under DNR/DNI advanced medical directive. I had the discussion with the patient and his daughter Mayra Alan about rescinding this status for the duration of the operation. Further DNR/DNI status post operatively to be discussed after the procedure. PreAnesthesia Questionnaire Cardiovascular History: Reports: Hypertension Respiratory History: Reports: COPD Gastrointestinal History: Reports: Pancreatitis Genitourinary History: Reports: BPH, Diabetic Nephropathy Musculoskeletal History: Reports: Fracture, Osteoarthritis Endocrine/Metabolic History: Reports: Diabetes, Type II Dermatologic History: Reports: Other (See Below) Other Dermatologic History: 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 Many moles throughout body. - Infectious Disease History Infectious Disease History: Reports: Chicken Pox, Measles, Mumps - Past Surgical History HEENT Surgical History: Reports: Cataract Surgery, Other (See Below) GI Surgical History: Reports: Appendectomy, Hernia, Inguinal Neurological Surgical History: Reports: Lumbar Spine - SUBSTANCE USE Tobacco Use Status *Q: Never Tobacco User Second Hand Smoke Exposure: No Recreational Drug Use History: No - HOME MEDS Home Medications: Home Meds Aspirin 81 mg PO DAILY 03/12/18 [History] Doxazosin [Doxazosin Mesylate] 8 mg PO DAILY 03/12/18 [History] Dulaglutide [Trulicity] 1.5 mg SQ TH 03/12/18 [History] Gabapentin [Neurontin] 300 mg PO BID 03/12/18 [History] Hyoscyamine Sulfate [Levsin-Sl] 0.125 mg SL ASDIRECTED #6 tab.subl 03/12/18 [Rx] metFORMIN [Glucophage] 500 mg PO BIDMEALS 05/20/20 [History] - CURRENT (IN HOUSE) MEDS Current Meds: Current Medications Doxazosin Mesylate (Cardura) 8 mg PO DAILY [facility] Last Admin: 05/21/20 08:05 Dose: Not Given Documented by: Heparin Sodium (Porcine) (Heparin Sodium) 5,000 units SUBCUT Q8H [facility] Last Admin: 05/21/20 08:24 Dose: 5,000 units Documented by: Ceftriaxone Sodium 2 gm/ (Sodium Chloride) 100 mls @ 200 mls/hr IV Q24H [facility] Dextrose/Sodium Chloride (Dextrose 5%-Normal Saline) 1,000 mls @ 25 mls/hr IV ASDIRECTED [facility] Last Infusion: 05/21/20 08:07 Dose: 25 mls/hr Documented by: Magnesium Sulfate 4 gm/ Premix 50 mls @ 12.5 mls/hr IV ONETIME ONE Stop: 05/21/20 13:29 Last Admin: 05/21/20 08:29 Dose: Not Given Documented by: Insulin Human Lispro (Humalog) 0 unit SUBCUT QIDACANDBED [facility]; Protocol Last Admin: 05/21/20 07:33 Dose: 4 units Documented by: Morphine Sulfate (Morphine) 1 mg IVPUSH Q4H PRN PRN Reason: Pain (severe 7-10) Oxycodone HCl (Oxycodone) 5 mg PO Q4H PRN PRN Reason: Pain (moderate 4-6) Sodium Chloride (Saline Flush) 10 ml FLUSH ASDIRECTED PRN PRN Reason: Keep Vein Open Last Admin: 05/20/20 14:32 Dose: 10 ml Documented by: Discontinued Medications Acetaminophen (Tylenol) 975 mg PO NOW ONE Stop: 05/20/20 14:16 Last Admin: 05/20/20 14:32 Dose: 975 mg Documented by: Sodium Chloride (Normal Saline) 1,000 mls @ 150 mls/hr IV NOW STA Stop: 05/20/20 20:41 Last Admin: 05/20/20 14:32 Dose: 150 mls/hr Documented by: Ceftriaxone Sodium 2 gm/ (Sodium Chloride) 100 mls @ 200 mls/hr IV ONETIME ONE Stop: 05/20/20 15:10 Last Admin: 05/20/20 16:19 Dose: 200 mls/hr Documented by: Sodium Chloride (Normal Saline) 500 mls @ 999 mls/hr IV NOW STA Stop: 05/20/20 15:12 Last Infusion: 05/20/20 15:57 Dose: Infused Documented by: Sodium Chloride (Normal Saline) 1,000 mls @ 999 mls/hr IV NOW STA Stop: 05/20/20 15:42 Last Admin: 05/20/20 14:49 Dose: 999 mls/hr Documented by: Magnesium Sulfate 4 gm/ Premix 50 mls @ 12.5 mls/hr IV ONETIME ONE Stop: 05/20/20 19:17 Last Admin: 05/20/20 15:48 Dose: 12.5 mls/hr Documented by: Lactated Ringer's (Ringers, Lactated) 1,000 mls @ 75 mls/hr IV ASDIRECTED TRE Sodium Chloride (Normal Saline) 1,000 mls @ 75 mls/hr IV ASDIRECTED TRE Last Admin: 05/20/20 19:26 Dose: 75 mls/hr Documented by: Sodium Chloride (Normal Saline) 1,000 mls @ 75 mls/hr IV ASDIRECTED TRE Magnesium Sulfate 4 gm/ Premix 50 mls @ 12.5 mls/hr IV ONETIME ONE Stop: 05/21/20 11:31 Last Admin: 05/21/20 08:14 Dose: Not Given Documented by: Insulin Human Lispro (Humalog) 5 unit SUBCUT ONETIME ONE Stop: 05/20/20 15:08 Last Admin: 05/20/20 15:41 Dose: 5 unit Documented by: Insulin Human Lispro (Humalog) 5 unit SUBCUT ONETIME ONE Stop: 05/20/20 16:30 Last Admin: 05/20/20 16:59 Dose: 5 units Documented by: Insulin Human Lispro (Humalog) 3 unit SUBCUT ONETIME ONE Stop: 05/20/20 19:36 Last Admin: 05/20/20 19:45 Dose: 3 units Documented by: Lidocaine/Epinephrine (Xylocaine 1% With Epinephrine 1:100,000) Confirm Administered Dose 40 ml .ROUTE .STK-MED ONE Stop: 05/21/20 08:36
[2020-05-21] MEDS ORDERED: Doxazosin 4 MG Tab PO SCH (09:00)
[2020-05-21] MEDS ORDERED: Lidocaine 1% 4 ML ONE (09:06)
[2020-05-21] MEDS ORDERED: Rocuronium 50 MG/5 ML Vial ONE (09:06)
[2020-05-21] MEDS ORDERED: Succinylcholine/Sod PF 100 MG/5 ML SYRINGE IV ONE (09:06)
[2020-05-21] MEDS ORDERED: fentaNYL 250 MCG/5 ML SDV ONE (09:06)
[2020-05-21] MEDS ORDERED: Etomidate 2 MG/ML 20 ML SDV IVPUSH ONE (09:08)
[2020-05-21] MEDS ORDERED: HYDROmorphone 0.5 MG/0.5 ML Syringe ONE ×2 (09:18→10:46)
[2020-05-21] MEDS ORDERED: cefTRIAXone 2 GM in Sodium Chloride 0.9% 100 ML IV STA ×2 (09:31→09:39)
[2020-05-21] MEDS ORDERED: Ondansetron 4 MG/2 ML SDV ONE (10:08)
[2020-05-21] MEDS ORDERED: Esmolol 100 MG/10 ML SDV ONE (10:49)
[2020-05-21] MEDS ORDERED: Dexmedetomidine 200 MCG/2 ML SDV ONE (11:09)
[2020-05-21] MEDS ORDERED: Sodium Chloride 0.9% 100 ML ONE (11:13)
--- NOTE | 2020-05-21 11:14 | PCM.PRNOTE ---
- Free Text/Narrative Note: Date: 05/21/2020 Operation: laparoscopic cholecystectomy with liver biopsy Surgeon: King Cook MD Findings: severely inflamed gallbladder with one area of apparent transmural necrosis, with palpable large gallstone. Critical view of safety obtained. There was spillage of bile from the gallbladder, which appeared thin, cloudy and brown. There were myriad punctate white nodules on the surface of the liver, which itself had the appearance of some fibrotic change. A biopsy of one of the lesions was obtained. There was no peritoneal or omental studding or other findings to suggest carcinomatosis. A ROCKY drain was left in the gallbladder fossa. Detailed Report: The patient was taken to the OR and placed supine. Time out was performed. General endotracheal anesthesia was initiated. A aguilar catheter was placed, and abdominal hair was clipped. The abdomen was prepped and draped in usual sterile fashion. A Veress needle was placed at the left upper quadrant to establish pneumoperitoneum. Air was aspirated at the umbilicus and a bladed 5 mm trocar was placed just superior to the umbilicus. A 30 degree 5 mm laparoscope was inserted into the abdomen. There was no injury from Veress placement and the needle was removed. Two more 5 mm ports were placed at the right upper quadrant under laparoscopic visualization. The patient was positioned in reverse Trendelenburg and rotated toward the surgeon on the patient's left side. The fundus of the gallbladder was grasped and retracted cephalad by the conference assistant. The omentum encased the gallbladder and was taken down with blunt dissection. The gallbladder was severely inflamed and hemorrhagic on handling. An additional 5 mm port was placed at the patient's left side so that the omentum could be retracted out of the field of view. A bladed 12 mm port was placed at the subxiphoid region. The infundibulum was retracted laterally, and a combination of blunt dissection with the suction finishing range supervisor and dissection with hook monopolar energy commenced. The cystic structures were clearly identified and a critical view of safety was obtained. Hemolock clips were placed on the cystic structures and the artery and duct were transected with laparoscopic carlos manuel. THe gallbladder was then taken off the liver. During retraction, there was spillage of bile from a rent near the infundibulum, and some thin cloudy brownish bile spilled. THe gallbladder was placed in an endocatch bag and removed through the subxiphoid port. THe dissection field was thoroughly irrigated and suctioned. Areas of bleeding were cauterized. A large piece of surgicel was placed in the fossa, and a 10 F flat ROCKY drain was placed in the dissection field and brought out through the site of the right lateral-most port site. This was secured at the skin with a nylon suture. There was fibrotic change to the liver with multiple subcentimeter fibrotic white nodules on the surface. A biopsy was obtained near the edge of the liver on the right side of the falciform ligament. A PMI laparoscopic suture passer was used to close the subxiphoid site at the level of fascia with 0 vicryl suture. 5 mm ports were removed under laparoscopic visualization and pneumoperitoneum was released. Skin incisions were closed with 4-0 vicryl and dressed with dermabond. A total of 40 cc 1% lidocaine with epinephrine was injected for local anesthetic. The patient tolerated the operation well, was extubated in the OR and transferred to the ICU in stable condition.
--- NOTE | 2020-05-21 11:39 | PCM.POSTAN ---
POST ANESTHESIA ASSESSMENT - MENTAL STATUS Mental Status: Alert, Confused - VITAL SIGNS Vital Signs: Last Vital Signs Temp 209.7 F H 05/21/20 11:18 Pulse 86 05/21/20 11:18 Resp 22 H 05/21/20 11:18 BP 116/69 05/21/20 11:18 Pulse Ox 93 L 05/21/20 11:18 - RESPIRATORY Respiratory Status: Respiratory Rate WNL, Airway Patent, O2 Saturation Stable, Supplemental Oxygen - CARDIOVASCULAR CV Status: Pulse Rate WNL, Blood Pressure Stable - GASTROINTESTINAL GI Status: No Symptoms - PAIN Pain Score: 4 - POST OP HYDRATION Hydration Status: Adequate & Stable
[2020-05-21] MEDS: Sodium Chloride 0.9% 1,000 ML IV SCH (11:54)
[2020-05-21] MEDS: oxyCODONE 5 MG Tab PO PRN ×3 (13:31→20:22)
[2020-05-21] MEDS ORDERED: cefTRIAXone 2 GM in Sodium Chloride 0.9% 100 ML IV SCH (14:00)
[2020-05-21] MEDS ORDERED: Metoprolol Tartrate 5 MG in Sodium Chloride 0.9% 50 ML IV PRN (18:04)
[2020-05-21] MEDS: Acetaminophen 325 MG Tab PO SCH (18:24)
[2020-05-21] MEDS: Metoprolol Tartrate 5 MG/5 ML SDV IVPUSH PRN (18:25)
[2020-05-21] MEDS: diphenhydrAMINE 25 MG Cap PO PRN (20:22)
[2020-05-22] MEDS: Heparin Sodium 5,000 Units/ML Vial SUBCUT SCH ×3 (00:19→17:23)
[2020-05-22] MEDS: Sodium Chloride 0.9% 1,000 ML IV SCH (00:19)
[2020-05-22] MEDS: oxyCODONE 5 MG Tab PO PRN ×2 (00:19→19:13)
[2020-05-22] MEDS: Metoprolol Tartrate 5 MG/5 ML SDV IVPUSH PRN ×2 (00:20→04:43)
[2020-05-22] MEDS: Acetaminophen 325 MG Tab PO SCH ×3 (01:15→18:00)
[2020-05-22] MEDS ORDERED: Doxazosin 4 MG Tab PO ONE (07:30)
[2020-05-22] MEDS ORDERED: Metoprolol Tartrate 5 MG/5 ML SDV IV PRN (08:41)
--- NOTE | 2020-05-22 08:47 | PCM.SN.2 ---
- Free Text/Narrative Note: 89 yo man presenting with infected cholecystitis and septicemia on 05/20. Underwent laparoscopic cholecystectomy and liver biopsy yesterday. S: reports visual hallucinations when he closes his eyes. Reports need to have a bowel movement. Transient nausea this morning. Tolerating clears. O: AF-VSS, hypertensive with systolics 170s-180s this morning good urine output labs this morning improved Awake and alert, no distress Shallow breathing abdomen distended, soft, nontender, incisions look good, ROCKY drain with thin bloody output Aguilar in place with clear yellow urine output A: much improved after cholecystectomy P: -discontinue IV pain medication -ramana -regular diet -continue IV ceftriazone while in house -no need to repeat labs -discontinue aguilar catheter, follow up void/ r/o urinary retention -IV hydralazine prn hypertension -heparin 5000 u SC for DVT ppx -transfer out of ICU to floor -anticipate discharge to home tomorrow
[2020-05-22] MEDS ORDERED: Bisacodyl 10 MG Supp RECTAL ONE (08:52)
[2020-05-22] MEDS: hydrALAZINE 20 MG/ML SDV IVPUSH PRN ×2 (09:00→20:24)
[2020-05-22] MEDS: cefTRIAXone 2 GM in Sodium Chloride 0.9% 100 ML IV SCH (09:08)
[2020-05-22] MEDS: Docusate Sodium 100 MG Cap PO SCH (09:45)
[2020-05-22] MEDS: Polyethylene Glycol 3350 Powder 17 GM Packet PO SCH (09:58)
[2020-05-22] MEDS: Ondansetron 4 MG/2 ML SDV IVPUSH PRN ×2 (10:39→18:32)
--- NOTE | 2020-05-22 14:55 | PCM48HPAN ---
Post Anesthesia Note - EVALUATION WITHIN 48HRS OF ANESTHETIC Vital Signs in Normal Range: Yes (within peoperative baseline) Patient Participated in Evaluation: Yes Respiratory Function Stable: Yes Airway Patent: Yes Cardiovascular Function Stable: Yes Hydration Status Stable: Yes Pain Control Satisfactory: Yes Nausea and Vomiting Control Satisfactory: Yes Mental Status Recovered: Yes (within peoperative baseline) Vital Signs: Last Vital Signs Temp 98.9 F 05/22/20 09:27 Pulse 74 05/22/20 04:43 Resp 15 05/22/20 07:56 BP 164/64 H 05/22/20 09:39 Pulse Ox 94 L 05/22/20 07:56 - COMMENTS/OBSERVATIONS Free Text/Narrative:: Patient is on postoperative day 1. Stable, pain under control, out of bed to the chair as tolerated, discharge is being planned. No apparent anesthesia complications observed.
[2020-05-22] MEDS ORDERED: Pantoprazole 40 MG Tab.CR PO SCH (19:15)
[2020-05-22] MEDS: diphenhydrAMINE 25 MG Cap PO PRN (20:24)
[2020-05-22] MEDS: OLANZapine 5 MG Tab PO SCH ×2 (22:21→22:25)
[2020-05-22] MEDS ORDERED: OLANZapine 10 MG Vial IM ONE (22:25)
[2020-05-23] MEDS: hydrALAZINE 20 MG/ML SDV IVPUSH PRN ×3 (00:05→16:10)
[2020-05-23] MEDS: Acetaminophen 325 MG Tab PO SCH ×4 (01:37→17:58)
[2020-05-23] MEDS: Heparin Sodium 5,000 Units/ML Vial SUBCUT SCH ×3 (01:37→18:01)
[2020-05-23] MEDS: Ondansetron 4 MG/2 ML SDV IVPUSH PRN ×2 (02:08→10:22)
[2020-05-23] MEDS: Doxazosin 4 MG Tab PO SCH (08:12)
[2020-05-23] MEDS: Docusate Sodium 100 MG Cap PO SCH (08:13)
[2020-05-23] MEDS: Polyethylene Glycol 3350 Powder 17 GM Packet PO SCH (08:13)
[2020-05-23] MEDS: Pantoprazole 40 MG Tab.CR PO SCH (08:14)
[2020-05-23] MEDS ORDERED: Simethicone 80 MG Tab.Chew PO PRN (08:14)
--- NOTE | 2020-05-23 08:22 | PCM.SN.2 ---
- Free Text/Narrative Note: Infected cholecystitis, s/p laparoscopic cholecystectomy 05/21. S: agitated delirium overnight. Lab work unremarkable, ABG shows evidence of respiratory alkalosis, troponin and EKG show no evidence of CA. O: AF-VSS (hypertensive) Feeling better this morning, alert and interactive Reports upper back pain, nausea and bloating Breathing has slowed, still with shallow respirations on room air, SpO2 > 90% Abd distended, tympanitic to percussion, not tender, incision sites look good, ROCKY drain with dark brownish output No LE edema A: Overall doing okay after laparoscopic cholecystectomy two days ago. Some concern for ileus given distention and nausea. Had a bowel movement and is passing small amount of flatus. Delirium last night is now improved. P: -no narcotics. tylneol prn -restart mIVF @ 50 cc/hr -regular diet as tolerated -pulmonary toilet, IS, OOB -PT/OT consults -continue ROCKY drain and IV antibiotics for now -KUB to assess for ileus, patient may need NG decompress for symptom relief -neurontin for diabetic neuropathy -insulin management per hospitalist team -guarded prognosis, anticipate another 24 hrs in house.
[2020-05-23] MEDS: Sodium Chloride 0.45% 1,000 ML IV SCH (08:37)
--- NOTE | 2020-05-23 08:37 | CR ---
Chest: Portable view of the chest was obtained. Comparison: Prior chest x-ray of 05/20/20. Poor inspiratory effort is seen. This causes some atelectasis within the right lung. Lung markings are also slightly increased most likely relating to inspiratory effort. Heart size is normal. Mediastinum is otherwise within normal limits. Bony structures show degenerative change within the left shoulder. Impression: 1. Poor inspiratory effort causing areas of density within both lungs. 2. Nothing acute is otherwise appreciated. Diagnostic code #2
[2020-05-23] MEDS: Gabapentin 100 MG Cap PO SCH ×3 (09:38→20:32)
[2020-05-23] MEDS: cefTRIAXone 2 GM in Sodium Chloride 0.9% 100 ML IV SCH (09:39)
--- NOTE | 2020-05-23 09:50 | CR ---
Abdomen: Supine view of the abdomen was obtained. Comparison: Previous CT abdomen and pelvis exam of 05/19/20. Contrast is noted within the colon from prior CT study. Numerous dilated air-filled small bowel loops are seen. Bony structures appear within normal limits. Impression: 1. Dilated air-filled small bowel loops. Uncertain if this is due to prominent small bowel ileus or represents interval change of distal small bowel obstruction. 2. No other acute abnormality is appreciated. Diagnostic code #3
[2020-05-23] MEDS ORDERED: Albuterol 0.083% 2.5 MG/3 ML Neb Soln NEB ONE (10:17)
[2020-05-23] MEDS ORDERED: OLANZapine 10 MG Vial IM PRN ×2 (19:31→19:33)
[2020-05-23] MEDS: OLANZapine 5 MG Tab PO SCH (20:33)
[2020-05-23] MEDS ORDERED: OLANZapine 5 MG Tab PO SCH (21:00)
[2020-05-23] MEDS ORDERED: Albuterol 0.083% 2.5 MG/3 ML Neb Soln NEB PRN (21:40)
[2020-05-24] MEDS: Heparin Sodium 5,000 Units/ML Vial SUBCUT SCH ×2 (01:29→09:06)
[2020-05-24] MEDS: Acetaminophen 325 MG Tab PO SCH ×2 (01:31→09:16)
[2020-05-24] MEDS: Sodium Chloride 0.45% 1,000 ML IV SCH (06:29)
[2020-05-24] MEDS: hydrALAZINE 20 MG/ML SDV IVPUSH PRN (06:34)
[2020-05-24] MEDS: Doxazosin 4 MG Tab PO SCH (09:07)
[2020-05-24] MEDS: Gabapentin 100 MG Cap PO SCH ×2 (09:07→14:16)
[2020-05-24] MEDS: Pantoprazole 40 MG Tab.CR PO SCH (09:07)
[2020-05-24] MEDS: Docusate Sodium 100 MG Cap PO SCH (09:08)
[2020-05-24] MEDS: Polyethylene Glycol 3350 Powder 17 GM Packet PO SCH (09:08)
[2020-05-24] MEDS: cefTRIAXone 2 GM in Sodium Chloride 0.9% 100 ML IV SCH (09:17)
--- NOTE | 2020-05-24 09:47 | PCM.SN.2 ---
- Free Text/Narrative Note: Infected cholecystitis with septicemia on presentation, s/p laparoscopic cholecystectomy on 05/21. S: rested better overnight, with some confusion but no hallucinations or agitated delirium. Not much appetite but passing flatus and stool. Reports feeling okay overall, some chest discomfort this morning. O: AF-VSS (hypertensive) Awake and alert, interactive Breathing more regularly, on 2 L NC, wheezing is improved RRR, palpable radial pulses Abd less distended, nontender, ROCKY drain with minimal serosanguinous output No LE edema A: overall improving after laparoscopic cholecystectomy. Patient has required an inpatient stay of over 96 hours due to need for postoperative care and management of septicemia, ileus, agitated delirium. P: -no narcotics. Tylenol prn pain. -IS, OOB, nebulizer treatments prn. -ramana -diabetic diet as tolerated -ceftriaxone for Klebsiella pneumoniae on blood culture. Plan to switch to oral antibiotic prior to discharge -stop bowel regimen -continue PT/OT -anticipate discharge to home this afternoon vs tomorrow if continuing to do well. Plan to remove ROCKY drain just prior to discharge.
[2020-05-24] MEDS ORDERED: Albuterol/Ipratropium 3.0-0.5 MG/3 ML Neb Soln NEB PRN (10:34)
--- NOTE | 2020-05-24 13:06 | PCM.DCSUM1 ---
Discharge Summary - Hospital Course Free Text/Narrative:: The patient is an 89-year-old man who presented to the emergency room on May 20 with right upper quadrant abdominal pain and high fever. Initial work-up in the emergency room revealed findings of acute cholecystitis. Lab work also indicated the patient was significantly dehydrated. He was admitted to the ICU for fluid resuscitation and antibiotics as he met sepsis criteria. Blood cultures were drawn on presentation prior to starting ceftriaxone. Blood cultures eventually grew out Klebsiella pneumonia. On admission, the patient's serum glucose was over 400. He has a history of type 2 diabetes, but his profound hyperglycemia seems more related to sepsis. The hospitalist team was consulted to aid in management of the patient's diabetes, and he was started on sliding scale insulin. The patient was somewhat improved with better labs the morning of hospital day 1, and the decision was made to proceed to the operating room for laparoscopic cholecystectomy. This was completed uneventfully. There was spillage of bile due to gangrenous change of the gallbladder, and a ROCKY drain was left in the dissection field. This was removed once the patient was ready for discharge from the hospital. Postoperatively, the patient stayed in the hospital for 3 more days. His stay was complicated by agitated delirium, worse in the evenings, when he was suspicious of staff and experiencing visual hallucinations. Low-dose Zyprexa was prescribed in the evenings for this with some benefit. Postoperatively, the patient was distended and plain films raise concern for postoperative ileus, however this resolved quickly and the patient began regularly passing flatus and in stool. He was tachypneic and wheezing on postoperative day 2, and lab work including CBC, CMP, ABG, troponins and EKG revealed no abnormality. The patient continued to slowly improve with gentle fluid resuscitation and continued antibiotics. His vital signs were stable, and his blood pressure was on the high side, occasionally peaking above 180. He was restarted on home Cardura, and was given hydralazine as needed for blood pressures greater than 180. On postop day 3, he was doing well. He was tolerating a diet, was having bowel movements, was ambulatory and had worked with physical therapy and occupational therapy, and was deemed fit for discharge to home with family. He was switched from ceftriaxone while inpatient to oral Augmentin, which he will go home with and take for a week. - Discharge Data Discharge Date: 05/24/20 Discharge Disposition: Home, Self-Care 01 Condition: Good - Referral to Home Health Primary Care Physician: Stephen Rosales MD - Patient Summary/Data Operative Procedure(s) Performed: laparoscopic cholecystectomy Consults: Consultations 05/20/20 19:26 Consult to Physician [CONS] Stat 05/23/20 10:13 Consult to Physical Therapy [PT Evaluation and Treatment] [CONS] Routine 05/23/20 10:17 Consult to Occupational Therapy [OT Evaluation and Treatment] [CONS] Routine - Patient Instructions Diet: Diabetic Diet Activity: As Tolerated Showering/Bathing: May Shower Wound/Incision Care: Keep Operative Site/Wound Site Clean and Dry Notify Provider of: Fever, Increased Pain, Swelling and Redness, Drainage, Nausea and/or Vomiting - Discharge Plan *PRESCRIPTION DRUG MONITORING PROGRAM REVIEWED*: Not Applicable *COPY OF PRESCRIPTION DRUG MONITORING REPORT IN PATIENT ANTHONY: Not Applicable Prescriptions/Med Rec: Amoxicillin/Potassium Clav [Augmentin 500-125 Tablet] 1 each PO BID #14 tablet Pantoprazole [ProTONIX] 40 mg PO DAILY #20 tab.cr Home Medications: Home Meds Aspirin 81 mg PO DAILY 03/12/18 [History] Doxazosin [Doxazosin Mesylate] 8 mg PO DAILY 03/12/18 [History] Dulaglutide [Trulicity] 1.5 mg SQ TH 03/12/18 [History] Gabapentin [Neurontin] 300 mg PO BID 03/12/18 [History] Hyoscyamine Sulfate [Levsin-Sl] 0.125 mg SL ASDIRECTED #6 tab.subl 03/12/18 [Rx] metFORMIN [Glucophage] 500 mg PO BIDMEALS 05/20/20 [History] Amoxicillin/Potassium Clav [Augmentin 500-125 Tablet] 1 each PO BID #14 tablet 05/24/20 [Rx] Pantoprazole [ProTONIX] 40 mg PO DAILY #20 tab.cr 05/24/20 [Rx] Oxygen Therapy Mode: Room Air Patient Handouts: Diabetes Mellitus and Sick Day Management, Sepsis, Diagnosis, Adult, Type 2 Diabetes Mellitus, Self Care, Adult Forms: ED Department Discharge Referrals: Stephen Rosales MD [Primary Care Provider] - - Discharge Summary/Plan Comment DC Time >30 min.: Yes - Patient Data Vitals - Most Recent: Last Vital Signs Temp 36.7 C 05/24/20 12:00 Pulse 85 05/24/20 03:49 Resp 21 H 05/24/20 12:00 BP 167/75 H 05/24/20 12:00 Pulse Ox 96 05/24/20 12:00 Weight - Most Recent: 93.922 kg I&O - Last 24 hours: Intake & Output 05/23/20 05/24/20 05/24/20 22:59 06:59 14:59 Intake Total 1285 1353 360 Output Total 315 280 Balance 970 1073 360 Lab Results - Last 24 hrs: Laboratory Results - last 24 hr 05/23/20 05/23/20 05/24/20 Range/Units 17:46 20:31 05:55 POC Glucose 255 H 298 H 174 H (83-110) mg/dL 05/24/20 Range/Units 12:14 POC Glucose 246 H (83-110) mg/dL DOMINICK Results - Last 24 hrs: Microbiology 05/20/20 14:23 Aerobic Blood Culture - Preliminary Blood - Venous Gram Negative Rods Anaerobic Blood Culture - Preliminary Klebsiella Pneumoniae 05/20/20 14:31 Aerobic Blood Culture - Preliminary Blood - Venous - Lab Draw NO GROWTH AFTER 3 DAYS Anaerobic Blood Culture - Preliminary Klebsiella Pneumoniae Med Orders - Current: Current Medications Acetaminophen (Tylenol) 650 mg PO Q8H [facility] Last Admin: 05/24/20 09:16 Dose: 650 mg Documented by: Albuterol/Ipratropium (Duoneb 3.0-0.5 Mg/3 Ml) 3 ml NEB Q4HRRT PRN PRN Reason: Shortness of Breath Diphenhydramine HCl (Benadryl) 25 mg PO BEDTIME PRN PRN Reason: Anxiety Last Admin: 05/22/20 20:24 Dose: 25 mg Documented by: Docusate Sodium (Colace) 100 mg PO DAILY [facility] Last Admin: 05/24/20 09:08 Dose: Not Given Documented by: Doxazosin Mesylate (Cardura) 8 mg PO DAILY [facility] Last Admin: 05/24/20 09:07 Dose: 8 mg Documented by: Gabapentin (Neurontin) 100 mg PO TID [facility] Last Admin: 05/24/20 09:07 Dose: 100 mg Documented by: Heparin Sodium (Porcine) (Heparin Sodium) 5,000 units SUBCUT Q8H [facility] Last Admin: 05/24/20 09:06 Dose: 5,000 units Documented by: Hydralazine HCl (Apresoline) 10 mg IVPUSH Q4H PRN PRN Reason: Hypertension Last Admin: 05/24/20 06:34 Dose: 10 mg Documented by: Ceftriaxone Sodium 2 gm/ (Sodium Chloride) 100 mls @ 200 mls/hr IV Q24H [facility] Last Admin: 05/24/20 09:17 Dose: 200 mls/hr Documented by: Insulin Human Lispro (Humalog) 0 unit SUBCUT QIDACANDBED [facility]; Protocol Last Admin: 05/24/20 09:05 Dose: 2 units Documented by: Olanzapine (Zyprexa) 2.5 mg PO BEDTIME [facility] Last Admin: 05/23/20 20:33 Dose: 2.5 mg Documented by: Olanzapine (Zyprexa) 2.5 mg IM ONETIME PRN PRN Reason: Sleep Ondansetron HCl (Zofran) 4 mg IVPUSH Q8H PRN PRN Reason: Nausea/Vomiting Last Admin: 05/23/20 10:22 Dose: 4 mg Documented by: Pantoprazole Sodium (Protonix) 40 mg PO DAILY [facility] Last Admin: 05/24/20 09:07 Dose: 40 mg Documented by: Polyethylene Glycol (Miralax) 17 gm PO DAILY [facility] Last Admin: 05/24/20 09:08 Dose: Not Given Documented by: Simethicone (Simethicone) 80 mg PO Q6H PRN PRN Reason: Gas Last Admin: 05/23/20 08:51 Dose: 80 mg Documented by: Sodium Chloride (Saline Flush) 10 ml FLUSH ASDIRECTED PRN PRN Reason: Keep Vein Open Last Admin: 05/20/20 14:32 Dose: 10 ml Documented by: Discontinued Medications Acetaminophen (Tylenol) 975 mg PO NOW ONE Stop: 05/20/20 14:16 Last Admin: 05/20/20 14:32 Dose: 975 mg Documented by: Albuterol (Proventil Neb Soln) 2.5 mg NEB ONETIME ONE Stop: 05/23/20 10:18 Last Admin: 05/23/20 10:29 Dose: 2.5 mg Documented by: Albuterol (Proventil Neb Soln) 2.5 mg NEB Q4HRRT PRN PRN Reason: Wheezing Last Admin: 05/23/20 22:03 Dose: 2.5 mg Documented by: Bisacodyl (Dulcolax) 10 mg RECTAL ONETIME ONE Stop: 05/22/20 08:53 Last Admin: 05/22/20 09:45 Dose: 10 mg Documented by: Dexmedetomidine HCl (Precedex) Confirm Administered Dose 200 mcg .ROUTE .STK-MED ONE Stop: 05/21/20 11:10 Doxazosin Mesylate (Cardura) 8 mg PO DAILY TRE Last Admin: 05/21/20 08:05 Dose: Not Given Documented by: Doxazosin Mesylate (Cardura) 8 mg PO NOW ONE Stop: 05/22/20 07:31 Last Admin: 05/22/20 07:35 Dose: 8 mg Documented by: Esmolol HCl (Esmolol) Confirm Administered Dose 100 mg .ROUTE .STK-MED ONE Stop: 05/21/20 10:50 Etomidate (Amidate) Confirm Administered Dose 40 mg IVPUSH .STK-MED ONE Stop: 05/21/20 09:09 Fentanyl (Sublimaze) Confirm Administered Dose 250 mcg .ROUTE .STK-MED ONE Stop: 05/21/20 09:07 Glycopyrrolate (Robinul) Confirm Administered Dose 0.8 mg .ROUTE .STK-MED ONE Stop: 05/21/20 10:30 Hydromorphone HCl (Dilaudid) Confirm Administered Dose 0.5 mg .ROUTE .STK-MED ONE Stop: 05/21/20 09:19 Hydromorphone HCl (Dilaudid) Confirm Administered Dose 0.5 mg .ROUTE .STK-MED ONE Stop: 05/21/20 10:47 Sodium Chloride (Normal Saline) 1,000 mls @ 150 mls/hr IV NOW STA Stop: 05/20/20 20:41 Last Admin: 05/20/20 14:32 Dose: 150 mls/hr Documented by: Ceftriaxone Sodium 2 gm/ (Sodium Chloride) 100 mls @ 200 mls/hr IV ONETIME ONE Stop: 05/20/20 15:10 Last Admin: 05/20/20 16:19 Dose: 200 mls/hr Documented by: Sodium Chloride (Normal Saline) 500 mls @ 999 mls/hr IV NOW STA Stop: 05/20/20 15:12 Last Infusion: 05/20/20 15:57 Dose: Infused Documented by: Sodium Chloride (Normal Saline) 1,000 mls @ 999 mls/hr IV NOW STA Stop: 05/20/20 15:42 Last Admin: 05/20/20 14:49 Dose: 999 mls/hr Documented by: Magnesium Sulfate 4 gm/ Premix 50 mls @ 12.5 mls/hr IV ONETIME ONE Stop: 05/20/20 19:17 Last Admin: 05/20/20 15:48 Dose: 12.5 mls/hr Documented by: Lactated Ringer's (Ringers, Lactated) 1,000 mls @ 75 mls/hr IV ASDIRECTED TRE Ceftriaxone Sodium 2 gm/ (Sodium Chloride) 100 mls @ 200 mls/hr IV Q24H TRE Sodium Chloride (Normal Saline) 1,000 mls @ 75 mls/hr IV ASDIRECTED [facility] Last Admin: 05/20/20 19:26 Dose: 75 mls/hr Documented by: Dextrose/Sodium Chloride (Dextrose 5%-Normal Saline) 1,000 mls @ 25 mls/hr IV ASDIRECTED [facility] Last Infusion: 05/21/20 08:07 Dose: 25 mls/hr Documented by: Sodium Chloride (Normal Saline) 1,000 mls @ 75 mls/hr IV ASDIRECTED [facility] Magnesium Sulfate 4 gm/ Premix 50 mls @ 12.5 mls/hr IV ONETIME ONE Stop: 05/21/20 11:31 Last Admin: 05/21/20 08:14 Dose: Not Given Documented by: Magnesium Sulfate 4 gm/ Premix 50 mls @ 12.5 mls/hr IV ONETIME ONE Stop: 05/21/20 13:29 Last Admin: 05/21/20 08:29 Dose: Not Given Documented by: Lidocaine HCl (Xylocaine-Mpf 1%) Confirm Administered Dose 4 mls @ as directed .ROUTE .STK-MED ONE Stop: 05/21/20 09:07 Ceftriaxone Sodium 2 gm/ (Sodium Chloride) 100 mls @ 200 mls/hr IV ONETIME STA Stop: 05/21/20 10:00 Last Admin: 05/21/20 15:14 Dose: Not Given Documented by: Ceftriaxone Sodium 2 gm/ (Sodium Chloride) 100 mls @ 200 mls/hr IV ONETIME STA Stop: 05/21/20 10:08 Last Admin: 05/21/20 10:41 Dose: Not Given Documented by: Sodium Chloride (Normal Saline) Confirm Administered Dose 100 mls @ as directed .ROUTE .STK-MED ONE Stop: 05/21/20 11:14 Sodium Chloride (Normal Saline) 1,000 mls @ 75 mls/hr IV ASDIRECTED [facility] Last Admin: 05/22/20 00:19 Dose: 75 mls/hr Documented by: Metoprolol Tartrate 5 mg/ (Sodium Chloride) 55 mls @ 100 mls/hr IV Q4H PRN PRN Reason: Hypertension Sodium Chloride (Sodium Chloride 0.45%) 1,000 mls @ 50 mls/hr IV ASDIRECTED [facility] Last Admin: 05/24/20 06:29 Dose: 50 mls/hr Documented by: Insulin Human Lispro (Humalog) 5 unit SUBCUT ONETIME ONE Stop: 05/20/20 15:08 Last Admin: 05/20/20 15:41 Dose: 5 unit Documented by: Insulin Human Lispro (Humalog) 5 unit SUBCUT ONETIME ONE Stop: 05/20/20 16:30 Last Admin: 05/20/20 16:59 Dose: 5 units Documented by: Insulin Human Lispro (Humalog) 3 unit SUBCUT ONETIME ONE Stop: 05/20/20 19:36 Last Admin: 05/20/20 19:45 Dose: 3 units Documented by: Lidocaine/Epinephrine (Xylocaine 1% With Epinephrine 1:100,000) Confirm Administered Dose 40 ml .ROUTE .STK-MED ONE Stop: 05/21/20 08:36 Last Admin: 05/21/20 09:30 Dose: 40 ml Documented by: Metoprolol Tartrate (Lopressor) 5 mg IVPUSH Q4H PRN PRN Reason: HYPERTENSION Last Admin: 05/22/20 04:43 Dose: 5 mg Documented by: Metoprolol Tartrate (Lopressor) 10 mg IV Q4H PRN PRN Reason: HYPERTENSION SBP > 170 mmHg Morphine Sulfate (Morphine) 1 mg IVPUSH Q4H PRN PRN Reason: Pain (severe 7-10) Last Admin: 05/22/20 01:03 Dose: 1 mg Documented by: Neostigmine Methylsulfate (Neostigmine Methylsulfate) Confirm Administered Dose 5 mg .ROUTE .STK-MED ONE Stop: 05/21/20 10:30 Olanzapine (Zyprexa) 2.5 mg PO BEDTIME TRE Olanzapine (Zyprexa) 2.5 mg IM ONETIME ONE Stop: 05/22/20 22:26 Last Admin: 05/22/20 22:32 Dose: 2.5 mg Documented by: Olanzapine (Zyprexa) 2.5 mg IM ONETIME PRN PRN Reason: Sleep Ondansetron HCl (Zofran) Confirm Administered Dose 8 mg .ROUTE .STK-MED ONE Stop: 05/21/20 10:09 Oxycodone HCl (Oxycodone) 5 mg PO Q4H PRN PRN Reason: Pain (moderate 4-6) Last Admin: 05/22/20 19:13 Dose: 5 mg Documented by: Pantoprazole Sodium (Protonix) 40 mg PO ACBREAKFAST TRE Last Admin: 05/22/20 19:13 Dose: 40 mg Documented by: Rocuronium [place] (Zemuron) Confirm Administered Dose 50 mg .ROUTE .STK-MED ONE Stop: 05/21/20 09:07
== END 2020-05-24 14:40 | disposition home or self-care (01) | DRG 854 ==
LOC: JD.ED 13:20 → JD.ICU 17:12
PROVIDERS: ADMIT Nurse Practitioner Family; ATTEND Surgery
PROC: 0FT44ZZ Resection of Gallbladder, Percutaneous Endoscopic Approach (ICD-10-PCS; principal; 2020-05-21)
DX: A41.89 Other specified sepsis (principal); K56.7 Ileus, unspecified; K80.00 Calculus of gallbladder with acute cholecystitis without obstruction; E87.1 Hypo-osmolality and hyponatremia; N17.9 Acute kidney failure, unspecified; K83.09 Other cholangitis; M19.90 Unspecified osteoarthritis, unspecified site; E11.40 Type 2 diabetes mellitus with diabetic neuropathy, unspecified; Z88.2 Allergy status to sulfonamides; Z88.8 Allergy status to other drugs, medicaments and biological substances; Z79.82 Long term (current) use of aspirin; E86.0 Dehydration; Z79.899 Other long term (current) drug therapy; J44.9 Chronic obstructive pulmonary disease, unspecified; N40.0 Benign prostatic hyperplasia without lower urinary tract symptoms; Z98.42 Cataract extraction status, left eye; Z98.41 Cataract extraction status, right eye; Z96.1 Presence of intraocular lens; K82.A1 Gangrene of gallbladder in cholecystitis; E83.42 Hypomagnesemia; R65.20 Severe sepsis without septic shock; E11.65 Type 2 diabetes mellitus with hyperglycemia; I11.0 Hypertensive heart disease with heart failure; I50.9 Heart failure, unspecified; Z66 Do not resuscitate; Z20.822 Contact with and (suspected) exposure to COVID-19; R06.02 Shortness of breath
CPT/HCPCS: 0240U; 36415; 36600; 71045; 74018; 76705; 80048; 80053; 81001; 82009; 82248; 82803; 82962; 82977; 83605; 83690; 83735; 83880; 84100; 84484; 85025; 86140; 87040; 87077; 87186; 93005; 94640; 96365; 96366; 96368; 97110; 97161; 99285; 00790; 88304; 88307; 88313; 93010; 99221; 99284; A9270-GY; J0330; J0360; J0696; J1170; J1644; J1815-GY; J2001; J2270; J2405; J2710; J3010; J3475; J3490; J7030; J7042

== ENCOUNTER 2020-06-08 15:46 | Emergency (ER) | payer MEDICARE, BC ==
--- NOTE | 2020-06-08 17:26 | EDM.PDOC ---
ED HPI GENERAL MEDICAL PROBLEM - General Chief Complaint: Gastrointestinal Problem Stated Complaint: DYSPHAGIA POST SURGERY Time Seen by Provider: 06/08/20 16:04 Source of Information: Reports: Patient, Family, RN Notes Reviewed History Limitations: Reports: No Limitations - History of Present Illness INITIAL COMMENTS - FREE TEXT/NARRATIVE: Patient is an 89-year-old male presenting to the emergency department at the request of his primary care provider. Daughter reports that patient's home health nurse was concerned that patient's abdomen seemed more distended than normal and that his bowel sounds were slow. Patient denies any abdominal pain. He has been passing gas and having daily bowel movements which she state are soft in nature. Patient does complain of ongoing pain with swallowing which has been occurring since he had his gallbladder out approximately 3 weeks ago. With swelling, he describes a localized pain to his left epigastrium. States is worse with swallowing liquids than solids. He has seen Dr. Cook in follow-up on Saturday of last week. There is no current plan that the daughter is aware of. Patient denies any nausea or vomiting. Upper Abdomen Pain Score (Numeric/FACES): 3 - Related Data Allergies Allergy/AdvReac Type Severity Reaction Status Date / Time Sulfa (Sulfonamide Allergy Severe Hives Verified 06/08/20 16:02 Antibiotics) lisinopril AdvReac Severe Liver Verified 06/08/20 16:02 Problems Home Meds: Home Meds Aspirin 81 mg PO DAILY 03/12/18 [History] Doxazosin [Doxazosin Mesylate] 8 mg PO DAILY 03/12/18 [History] Dulaglutide [Trulicity] 1.5 mg SQ TH 03/12/18 [History] Gabapentin [Neurontin] 300 mg PO BID 03/12/18 [History] Hyoscyamine Sulfate [Levsin-Sl] 0.125 mg SL ASDIRECTED #6 tab.subl 03/12/18 [Rx] metFORMIN [Glucophage] 500 mg PO BIDMEALS 05/20/20 [History] Pantoprazole [ProTONIX] 40 mg PO DAILY #20 tab.cr 05/24/20 [Rx] Past Medical History HEENT History: Reports: Other (See Below) Other HEENT History: Epigastric pain while swallowing. 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 Many moles throughout body. - Infectious Disease History Infectious Disease History: Reports: Chicken Pox, Measles, Mumps - Past Surgical History HEENT Surgical History: Reports: Cataract Surgery, Other (See Below) GI Surgical History: Reports: Appendectomy, Cholecystectomy, Hernia, Inguinal Neurological Surgical History: Reports: Lumbar Spine Social & Family History - Family History Family Medical History: Unobtainable - Tobacco Use Tobacco Use Status *Q: Never Tobacco User - Caffeine Use Caffeine Use: Reports: Coffee - Recreational Drug Use Recreational Drug Use: No - Living Situation & Occupation Living situation: Reports: , with Spouse, with Family (Daughter) Occupation: Retired ED ROS GENERAL - Review of Systems Review Of Systems: See Below Constitutional: Reports: No Symptoms. Denies: Fever, Chills HEENT: Reports: No Symptoms Respiratory: Reports: No Symptoms Cardiovascular: Reports: No Symptoms Endocrine: Reports: No Symptoms GI/Abdominal: Reports: Other (dysphagia). Denies: Abdominal Pain, Diarrhea, Nausea, Vomiting : Reports: No Symptoms Musculoskeletal: Reports: No Symptoms Skin: Reports: No Symptoms Neurological: Reports: No Symptoms Psychiatric: Reports: No Symptoms Hematologic/Lymphatic: Reports: No Symptoms Immunologic: Reports: No Symptoms ED EXAM, GI/ABD - Physical Exam Exam: See Below Exam Limited By: No Limitations General Appearance: Alert, WD/WN, No Apparent Distress Respiratory/Chest: No Respiratory Distress, Lungs Clear, Normal Breath Sounds, No Accessory Muscle Use, Chest Non-Tender Cardiovascular: Normal Peripheral Pulses, Regular Rate, Rhythm, No Edema, No Gallop, No JVD, No Murmur, No Rub GI/Abdominal Exam: Normal Bowel Sounds, Soft, Non-Tender, No Organomegaly, No Abnormal Bruit, No Mass, Pelvis Stable, Distended. No: Guarding, Rigid, Rebound Neurological: Alert, Oriented, CN II-XII Intact, Normal Cognition, Normal Gait, Normal Reflexes, No Motor/Sensory Deficits Psychiatric: Normal Affect, Normal Mood Skin Exam: Warm, Dry, Intact, Normal Color, No Rash Course - Vital Signs Last Recorded V/S: Last Vital Signs Temp 98.3 F 06/08/20 15:58 Pulse 77 02/10/21 15:58 Resp 18 06/08/20 15:58 BP 174/72 H 06/08/20 15:58 Pulse Ox 96 06/08/20 15:58 - Re-Assessments/Exams Free Text/Narrative Re-Assessment/Exam: Patient is an 89-year-old male presenting to the emergency department as his home health nurse had concerns with regard to perceived abdominal distention and hypoactive bowel sounds. On exam, his abdomen is slightly distended, however it is soft, nontender, and his bowel sounds are active in all 4 quadrants. Of more concern to him is his ongoing pain with swallowing. He describes a localized pain in his left epigastric area with swallowing. I did call and speak with Dr. Cook, the surgeon who completed the patient's gallbladder surgery. He recommended that we complete a chest CT with a swallow of oral contrast to evaluate the esophagus. He would like him to follow-up with him in the clinic to discuss these results and for ongoing management. I have ordered abdomen flat and upright x-ray as well as chest CT with oral contrast swallow. 06/08/20 17:47 Result of the abdomen flat and upright showed no acute findings, however he does have increased stool in the rectal vault and through the descending colon. Discussed possibly starting a daily stool softener, however he states he has been going and is not having any abdominal discomfort related to this. Folds of the chest CT with oral contrast show a small hiatal hernia. Contrast noted within the esophagus. Esophageal wall is also thickened. Findings are most likely due to reflux esophagitis. Endoscopy is suggested to confirm. Recommend patient and/or his daughter contact Dr. Cook's office tomorrow morning to set up a follow-up visit to discuss these results and for ongoing management. We will discharge him home. Recommend that he keeps using his Protonix that he is currently prescribed and begin taking Pepcid 20 mg BID as well. Discharge instructions as documented. Departure - Departure Time of Disposition: 17:49 Disposition: Home, Self-Care 01 Condition: Good Clinical Impression: Dysphagia Qualifiers: Dysphagia type: unspecified Qualified Code(s): R13.10 - Dysphagia, unspecified - Discharge Information *PRESCRIPTION DRUG MONITORING PROGRAM REVIEWED*: No *COPY OF PRESCRIPTION DRUG MONITORING REPORT IN PATIENT ANTHONY: No Instructions: Dysphagia Referrals: Stephen Rosales MD [Primary Care Provider] - King Cook MD [Physician] - Forms: ED Department Discharge Additional Instructions: You were seen in the emergency department today for concerns from your home health nurse regarding distended abdomen and slow bowel sounds. On exam, while your abdomen is slightly distended, it is soft and nontender. Bowel sounds are active. X-ray was completed the abdomen and does show some increased stool. You may begin taking a stool softener daily, such as Colace to help move your bowels. You also voiced concern regarding ongoing pain in your epigastric area with swallowing. Your case was discussed with surgeon, Dr. Cook. He recommended a CT scan be completed which showed a hiatal hernia as well as some inflammation in the esophagus. Recommend that you continue to take your Protonix daily. In addition, begin taking Pepcid 20 mg twice daily. Call tomorrow morning to set up a follow appointment with Dr. Cook for ongoing management of this discomfort. Return to ER as needed. Sepsis Event Note (ED) - Evaluation Sepsis Screening Result: No Definite Risk
--- NOTE | 2020-06-08 17:34 | CT ---
CT chest Technique: Multiple axial sections were obtained through the chest. Intravenous contrast was not utilized. There is a small amount of oral contrast being given. Reconstructed coronal and sagittal images were obtained. Findings: Atherosclerotic calcification is seen within the thoracic aorta but no aneurysm is seen. Coronary artery calcification is seen. No mediastinal adenopathy is noted. No pericardial thickening is seen. Small hiatal hernia is noted. Esophageal wall thickening is seen. Findings presumably are due to reflux esophagitis. Lung window settings shows no acute parenchymal change. Bone window settings were reviewed and show scattered degenerative change within the cervical spine and lesser degenerative change within the thoracic spine. Impression: 1. Small hiatal hernia. Contrast noted within the esophagus. Esophageal wall is also thickened. Findings are most likely due to reflux esophagitis. Endoscopy is suggested to confirm. 2. No other acute abnormality is seen. Diagnostic code #3
--- NOTE | 2020-06-08 17:42 | CR ---
Abdomen: Supine and upright views the abdomen were obtained. Comparison: Previous abdominal x-ray of 05/23/20. Previous dilated small bowel is no longer seen on current study. Bowel gas pattern appears normal. Previous lumbar spine surgery is noted with scattered scoliosis and mild scattered degenerative change. Minimal vascular calcification is noted. No free air is seen. Impression: 1. Findings as noted above. 2. Nothing acute is seen. Diagnostic code #2
== END 2020-06-08 18:41 | disposition home or self-care (01) ==
LOC: JD.ED 15:46
DX: R13.10 Dysphagia, unspecified (principal); E11.21 Type 2 diabetes mellitus with diabetic nephropathy; J44.9 Chronic obstructive pulmonary disease, unspecified; M19.90 Unspecified osteoarthritis, unspecified site; I10 Essential (primary) hypertension; Z79.84 Long term (current) use of oral hypoglycemic drugs; Z79.899 Other long term (current) drug therapy; Z88.2 Allergy status to sulfonamides; Z88.8 Allergy status to other drugs, medicaments and biological substances
CPT/HCPCS: 71250; 71250-26; 74019; 74019-26; 99284; 99284-25

== ENCOUNTER 2020-06-14 08:02 | Day surgery (SDC) | payer MEDICARE, BC ==
[~2020-06-14 08:02] MED LIST: Lactated Ringers 1,000 ML IV SCH; Lidocaine 1%/Sod Bicarbonate in NS 8.4% 1 ML Syringe IDERM PRN; Sodium Chloride 0.9% 10 ML Syringe FLUSH PRN
--- NOTE | 2020-06-14 08:31 | PCM.PREANE ---
Preanesthetic Assessment - Procedure Proposed Procedure: Diagnostic EGD - Anesthesia/Transfusion/Family Hx Anesthesia History: Prior Anesthesia Reaction Type of Anesthesia Reaction: Other (see below) (post op delirium) Family History of Anesthesia Reaction: No Transfusion History: No Prior Transfusion(s) Intubation History: Unknown - Review of Systems General: Fatigue Pulmonary: No Symptoms (ETOH: rarely) Cardiovascular: No Symptoms (HTN), Edema (slight edema) Gastrointestinal: No Symptoms (small hiatal hernia/occasional GERD), Decreased Appetite, Difficulty Swallowing (odynophagia- patient states dysphagia is getting better.) Neurological: No Symptoms (chronic back pain: none noted today/patient had sciatic nerve back surgery.), Numbness (diabetic neurapathy bilateral feet.) Other: Reports: None (History of Pancreatitis), Diabetes (am blood sugar = 145 @ 0700), Liver Problems (decreased kidney funtion noted.), Anxiety - Physical Assessment NPO Status Date: 06/13/20 NPO Status Time: 20:00 Vital Signs: HR: 84 Sat 96% Resp: 20 B/P: 146/71 Temp: 97.5 Height: 1.78 m Weight: 80 kg ASA Class: 3 Mental Status: Alert & Oriented x3 Airway Class: Mallampati = 2 Dentition: Reports: Normal Dentition, [place](s), [place] Thyro-Mental Finger Breadths: 3 Mouth Opening Finger Breadths: 3 ROM/Head Extension: Full Lungs: Clear to Auscultation, Normal Respiratory Effort, Crackles (posterior faint crackles) Cardiovascular: Regular Rate, Regular Rhythm, No Murmurs - Lab Values: All labs reviewed and noted and within acceptable ranges to proceed with scheduled procedure. - Allergies Allergies/Adverse Reactions: Allergies Allergy/AdvReac Type Severity Reaction Status Date / Time Sulfa (Sulfonamide Allergy Severe Hives Verified 06/13/20 13:02 Antibiotics) lisinopril AdvReac Severe Liver Verified 06/13/20 13:02 Problems - Anesthesia Plan Pre-Op Medication Ordered: None - Acknowledgements Anesthesia Type Planned: MAC Pt an Appropriate Candidate for the Planned Anesthesia: Yes Alternatives and Risks of Anesthesia Discussed w Pt/Guardian: Yes Pt/Guardian Understands and Agrees with Anesthesia Plan: Yes PreAnesthesia Questionnaire HEENT History: Reports: Other (See Below) Other HEENT History: Epigastric pain while swallowing Cardiovascular History: Reports: Hypertension Respiratory History: Reports: COPD Gastrointestinal History: Reports: Pancreatitis Genitourinary History: Reports: None, BPH, Diabetic Nephropathy DRAWER WAXER History: Reports: None Musculoskeletal History: Reports: Fracture, Osteoarthritis Neurological History: Reports: None Psychiatric History: Reports: None Endocrine/Metabolic History: Reports: Diabetes, Type II Hematologic History: Reports: None Immunologic History: Reports: None Oncologic (Cancer) History: Reports: None Dermatologic History: Reports: Other (See Below) Other Dermatologic History: 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 Many moles throughout body. - Infectious Disease History Infectious Disease History: Reports: None - Past Surgical History Head Surgeries/Procedures: Reports: None HEENT Surgical History: Reports: Cataract Surgery, Other (See Below) Cardiovascular Surgical History: Reports: None Respiratory Surgical History: Reports: None GI Surgical History: Reports: Appendectomy, Cholecystectomy, Hernia, Inguinal Female Surgical History: Reports: None Male Surgical History: Reports: None Endocrine Surgical History: Reports: None Neurological Surgical History: Reports: Lumbar Spine Musculoskeletal Surgical History: Reports: None Oncologic Surgical History: Reports: None Dermatological Surgical History: Reports: None - SUBSTANCE USE Tobacco Use Status *Q: Unknown Ever Used Tobacco Recreational Drug Use History: No - HOME MEDS Home Medications: Home Meds Aspirin 81 mg PO DAILY 03/12/18 [History] Doxazosin [Doxazosin Mesylate] 8 mg PO DAILY 03/12/18 [History] Dulaglutide [Trulicity] 1.5 mg SQ TH 03/12/18 [History] Gabapentin [Neurontin] 300 mg PO BID 03/12/18 [History] Hyoscyamine Sulfate [Levsin-Sl] 0.125 mg SL ASDIRECTED #6 tab.subl 03/12/18 [Rx] metFORMIN [Glucophage] 500 mg PO BIDMEALS 05/20/20 [History] Pantoprazole [ProTONIX] 40 mg PO DAILY #20 tab.cr 05/24/20 [Rx] - CURRENT (IN HOUSE) MEDS Current Meds: Current Medications Lactated Ringer's (Ringers, Lactated) 1,000 mls @ 125 mls/hr IV ASDIRECTED TRE Lidocaine/Sodium Bicarbonate (Buffered Lidocaine 1% In Ns 8.4%) 0.25 ml IDERM ONETIME PRN PRN Reason: Prior to IV Start Sodium Chloride (Saline Flush) 10 ml FLUSH ASDIRECTED PRN PRN Reason: Keep Vein Open
[2020-06-14] MEDS ORDERED: Propofol 200 MG/20 ML SDV ONE (09:13)
[2020-06-14] MEDS ORDERED: Lidocaine 1% 4 ML ONE (09:14)
[2020-06-14] MEDS ORDERED: fentaNYL 100 MCG/2 ML SDV ONE (09:14)
--- NOTE | 2020-06-14 10:17 | PCM.PRNOTE ---
- Free Text/Narrative Note: Date: 06/14/2020 Procedure: diagnostic EGD Indication: dysphagia Endoscopist: King Cook MD Findings: gross appearance of mild gastritis. No significant hiatal hernia. Severe inflammatory change of distal esophagus with gross evidence of metaplasia and ulceration. No discrete mass appreciated. Mid and proximal esophagus appeared relatively normal.
== END 2020-06-14 11:20 | disposition home or self-care (01) ==
LOC: JD.SDS 08:02
PROVIDERS: ATTEND Surgery
DX: K29.50 Unspecified chronic gastritis without bleeding (principal); K31.89 Other diseases of stomach and duodenum; K21.00 Gastro-esophageal reflux disease with esophagitis, without bleeding; I10 Essential (primary) hypertension; E11.40 Type 2 diabetes mellitus with diabetic neuropathy, unspecified; E11.21 Type 2 diabetes mellitus with diabetic nephropathy; Z79.84 Long term (current) use of oral hypoglycemic drugs; Z88.2 Allergy status to sulfonamides; Z79.899 Other long term (current) drug therapy; Z90.49 Acquired absence of other specified parts of digestive tract; Z98.890 Other specified postprocedural states; Z87.19 Personal history of other diseases of the digestive system; Z88.8 Allergy status to other drugs, medicaments and biological substances; Z79.82 Long term (current) use of aspirin
CPT/HCPCS: 43239; 88305; 88342; J2704; J7120; 00731; J3010